=== PATIENT | male | born 1985 | race Caucasian/White ===

== ENCOUNTER 2017-08-23 17:22 | Emergency (ER) | payer BC ==
[~2017-08-23] VITALS: Ht 182.9 cm; Wt 119.3 kg
[~2017-08-23 17:22] MED LIST: FENO145T37 PO; FENO48TA16 PO; GLIP5TAB26 PO; HYDR-3731 PO; IBUP-2055 PO; LISI10TA2 PO; LISI1TAB10 PO; METF-380 PO; OXYC-202 PO
[2017-08-23] MEDS ORDERED: NS IV 1000 ML 1,000 ML IV ONE (18:12)
[2017-08-23] MEDS ORDERED: KETOROLAC 30 MG/ML VIAL IVP STA (18:12)
[2017-08-23] MEDS ORDERED: HYOSCYAMINE 0.125 MG (LEVSIN) TAB SL ONE (18:15)
[2017-08-23] MEDS ORDERED: ONDANSETRON 4 MG/2 ML (SDV) Z0FRAN IVP ONE (18:15)
[2017-08-23 18:23] LABS: BASOPHILS % (AUTO) 0 % (0-10); EOSINOPHILS # (AUTO) 0.2 10^3/uL (0.0-0.3); EOSINOPHILS % (AUTO) 1 % (0-10); HEMATOCRIT 44 % (40-54); HEMOGLOBIN 15.4 G/DL (13.3-17.7); LYMPHOCYTES # (AUTO) 3.8 X 10^3 (1.0-4.0); LYMPHOCYTES % (AUTO) 26 % (12-44); MEAN CORPUSCULAR HEMOGLOBIN 29 PG (25-34); MEAN CORPUSCULAR HGB CONC 35 G/DL (32-36); MEAN CORPUSCULAR VOLUME 82 FL (80-99); MEAN PLATELET VOLUME 11.7 FL (7.4-10.4); MONOCYTES # (AUTO) 1.2 X 10^3 (0.0-1.0); MONOCYTES % (AUTO) 8 % (0-12); NEUTROPHILS # (AUTO) 9.6 X 10^3 (1.8-7.8); NEUTROPHILS % (AUTO) 65 % (42-75); PLATELET COUNT 246 10^3/uL (130-400); RED BLOOD COUNT 5.33 10^6/uL (4.35-5.85); RED CELL DISTRIBUTION WIDTH 13.7 % (10.0-14.5); WHITE BLOOD COUNT 14.8 10^3/uL (4.3-11.0)
[2017-08-23 18:33] LABS: BILIRUBIN,URINE NEGATIVE (NEGATIVE); CLARITY,URINE CLEAR; COLOR,URINE YELLOW; GLUCOSE, URINE (UA) 2+ (NEGATIVE); KETONES,URINE 1+ (NEGATIVE); LEUKOCYTE ESTERASE ,URINE NEGATIVE (NEGATIVE); NITRITE,URINE NEGATIVE (NEGATIVE); PH,URINE 6 (5-9); PROTEIN,URINE 2+ (NEGATIVE); UROBILINOGEN,URINE NORMAL (NORMAL)
[2017-08-23 18:43] LABS: ALANINE AMINOTRANSFERASE 48 U/L (0-55); ALBUMIN 4.6 GM/DL (3.2-4.5); ALKALINE PHOSPHATASE 52 U/L (40-136); AMYLASE 63 U/L (25-125); BILIRUBIN,TOTAL 0.5 MG/DL (0.1-1.0); BUN/CREATININE RATIO 20; CALCIUM 10.1 MG/DL (8.5-10.1); CARBON DIOXIDE 22 MMOL/L (21-32); CHLORIDE 104 MMOL/L (98-107); CREATININE SERUM 0.88 MG/DL (0.60-1.30); GFR ESTIMATED > 60; GLUCOSE 186 MG/DL (70-105); LIPASE 38 U/L (8-78); POTASSIUM 3.9 MMOL/L (3.6-5.0); SODIUM 139 MMOL/L (135-145); TOTAL PROTEIN 8.2 GM/DL (6.4-8.2)
[2017-08-23 18:46] LABS: BACTERIA,URINE NEGATIVE /HPF
--- NOTE | 2017-08-23 18:47 | Diagnostic Imaging Report ---
INDICATION: Nausea, vomiting, abdominal pain. 01/09/2015. KUB and upright views of the abdomen demonstrate nondistended bowel gas pattern. There is no free air. No significant constipation. IMPRESSION: Negative KUB and upright. Dictated by: Dictated on workstation # [id number]
--- NOTE | 2017-08-23 18:51 | Diagnostic Imaging Report ---
PROCEDURE: CT urinary tract, rule out kidney stone. TECHNIQUE: Multiple contiguous axial images were obtained through the abdomen and pelvis without the use of intravenous contrast. INDICATION: Nausea, right upper quadrant abdominal pain. COMPARISON: 01/05/2015. FINDINGS: Lung bases are clear. Stable fatty infiltration of the liver is present. Otherwise, liver morphology is unremarkable. Gallbladder, spleen, adrenal glands and kidneys are unremarkable. There is some questionable inflammatory change involving the pancreatic head which could represent very minimal pancreatitis. There is no pseudocyst. Please correlate with pancreatic enzymes. The course and caliber of the large and small bowel are normal. There is no free air or free fluid. Distal ureters and urinary bladder are normal. The abdominal wall is intact. Osseous structures are age-appropriate. IMPRESSION: 1. Questionable slight inflammatory change involving the pancreatic head. Please correlate with pancreatic enzymes. 2. Normal appearing gallbladder. 3. No hydronephrosis or renal calculi. Dictated by: Dictated on workstation # [id number]
--- NOTE | 2017-08-23 18:52 | ED Abdominal Pain ---
General Chief Complaint: Abdominal/GI Problems Stated Complaint: R SIDE STOMACH PAIN/NAUSEA Nursing Triage Note: C/O rt upper quad abd pain starting at 0200 this morning. dull ache that has not stopped. nausea. normal bm's 3 today, no urinary sx Sepsis Screen: No Definite Risk Source of Information: Patient Exam Limitations: No Limitations History of Present Illness Date Seen by Provider: August 23, 2017 Time Seen by Provider: 18:05 Initial Comments C/O RUQ PAIN, THAT WOKE HIM UP AT 0200 THIS AM PAIN HAS CONTINUED THROUGHOUT THE DAY, AND IS WORSE WITH BOUNCING ON BULLDOZER ALL DAY PAIN IS CONSTANT WITH INTERMITTENT MORE SEVERE PAIN AT TIMES RATES PAIN 7-8 /10 NO RADIATION OF PAIN C/O NAUSEA, NO VOMITING NO DIARRHEA OR CONSTIPATION--HAS HAD 2-3 NORMAL BM'S TODAY NO FEVER NO URINARY SYMPTOMS NO BACK PAIN NO HISTORY OF SIMILAR--PT HAS HISTORY OF KIDNEY STONES, BUT THIS IS NOT THE SAME ATE CHICKEN BREASTS, AND SALAD AT NOON HAS HAD 1/2 GALLON OF SWEET TEA, PLUS 3-4 BOTTLES OF WATER TO DRINK TODAY PCP: [facility] Allergies and Home Medications Allergies Coded Allergies: No Known Drug Allergies (Unverified , 08/23/17) Home Medications Fenofibrate Nanocrystallized 145 Mg Tablet, 145 MG PO DAILY, (Reported) Glipizide 5 Mg Tab.er.24, 5 MG PO DAILY, (Reported) Hydrocodone/Acetaminophen 1 Each Tablet, 1 TAB PO Q4H PRN for PAIN, (Reported) Hyoscyamine Sulfate 0.125 Mg Tab.subl, 1-2 TAB SL Q4H Prescribed by: DEBBIE PIKE on 08/23/171938 Ibuprofen 200 Mg Tablet, 800 MG PO DAILY PRN for PAIN, (Reported) Lisinopril/Hydrochlorothiazide 1 Each Tablet, 2 TAB PO DAILY, (Reported) Metformin Hcl 1,000 Mg Tablet, 1,000 MG PO BID, (Reported) 1 tablet twice a day after meals Oxycodone HCl/Acetaminophen 1 Each Tablet, 1 TAB PO Q6H PRN for PAIN, (Reported) Pantoprazole Sodium 40 Mg Tablet.dr, 40 MG PO DAILY Prescribed by: DEBBIE PIKE on 08/23/171938 Sucralfate 1 Gm Tablet, 1 GM PO QIDACHS Prescribed by: DEBBIE PIKE on 08/23/171938 Tramadol HCl 50 Mg Tablet, 50 MG PO Q4H Prescribed by: DEBBIE PIKE on 08/23/171938 Patient Home Medication List Home Medication List Reviewed: Yes Review of Systems Constitutional: no symptoms reported EENTM: No Symptoms Reported Respiratory: No Symptoms Reported Cardiovascular: No Symptoms Reported Gastrointestinal: See HPI, Abdominal Pain, Nausea; Denies Poor Appetite, Denies Poor Fluid Intake, Denies Vomiting Genitourinary: No Symptoms Reported Musculoskeletal: no symptoms reported; No back pain Skin: no symptoms reported Psychiatric/Neurological: No Symptoms Reported Endocrine: No Symptoms Reported Hematologic/Lymphatic: No Symptoms Reported Past Aajbrqt-Erjtom-Bcoqdf Hx Patient Social History Alcohol Use: Denies Use Recreational Drug Use: No Smoking Status: Former Smoker Type Used: Cigarettes Former Smoker, Quit: Apr 06, 2006 2nd Hand Smoke Exposure: No Recent Foreign Travel: No Contact w/Someone Who Travel: No Recent Infectious Disease Expo: No Recent Hopitalizations: Yes Physical Abuse: No Sexual Abuse: No Mistreated: No Fear: No Immunizations Up To Date Tetanus Booster (TDap): Less than 5yrs Past Medical History Surgeries: Yes (total ACL reconstruction at 16 years old; KIDNEY STONE REMOVAL) Orthopedic, Renal Respiratory: No Cardiac: Yes High Cholesterol, Hypertension Neurological: No Reproductive Disorders: No Genitourinary: Yes Kidney Stones Gastrointestinal: No Musculoskeletal: Yes (KNEE SURGERY AGE 16) Endocrine: Yes Diabetes, Non-Insulin dep HEENT: No Cancer: No Psychosocial: No Nursing Suicide Risk Score: 0 Integumentary: No Blood Disorders: No Family Medical History Diabetes mellitus 19 FATHER Myocardial infarction 19 FATHER Physical Exam Vital Signs Vital Signs - First Documented 08/23/17 17:51 Pulse 102 Resp 18 B/P (MAP) 180/112 (134) Pulse Ox 98 Capillary Refill : Less Than 3 Seconds General Appearance: no apparent distress, obese HEENT: PERRL/EOMI Neck: normal inspection Respiratory: normal breath sounds, no respiratory distress, no accessory muscle use Cardiovascular: regular rate, rhythm, no murmur Gastrointestinal: normal bowel sounds, soft, no organomegaly, no pulsatile mass Extremities: normal range of motion, non-tender, normal inspection, no pedal edema, no calf tenderness, normal capillary refill Back: normal inspection, no CVA tenderness 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, no motor/sensory deficits, alert, normal mood/affect, oriented x 3 Skin: normal color, warm/dry; No rash Progress/Results/Core Measures Results/Orders Lab Results Laboratory Tests Test 08/23/17 18:00 08/23/17 18:27 Range/Units White Blood Count 14.8 H 4.3-11.0 10^3/uL Red Blood Count 5.33 4.35-5.85 10^6/uL Hemoglobin 15.4 13.3-17.7 G/DL Hematocrit 44 40-54 % Mean Corpuscular Volume 82 80-99 FL Mean Corpuscular Hemoglobin 29 25-34 PG Mean Corpuscular Hemoglobin Concent 35 32-36 G/DL Red Cell Distribution Width 13.7 10.0-14.5 % Platelet Count 246 130-400 10^3/uL Mean Platelet Volume 11.7 H 7.4-10.4 FL Neutrophils (%) (Auto) 65 42-75 % Lymphocytes (%) (Auto) 26 12-44 % Monocytes (%) (Auto) 8 0-12 % Eosinophils (%) (Auto) 1 0-10 % Basophils (%) (Auto) 0 0-10 % Neutrophils # (Auto) 9.6 H 1.8-7.8 X 10^3 Lymphocytes # (Auto) 3.8 1.0-4.0 X 10^3 Monocytes # (Auto) 1.2 H 0.0-1.0 X 10^3 Eosinophils # (Auto) 0.2 0.0-0.3 10^3/uL Basophils # (Auto) 0.0 0.0-0.1 10^3/uL Neutrophils % (Manual) 65 % Lymphocytes % (Manual) 24 % Monocytes % (Manual) 11 % Blood Morphology Comment NORMAL Sodium Level 139 135-145 MMOL/L Potassium Level 3.9 3.6-5.0 MMOL/L Chloride Level 104 98-107 MMOL/L Carbon Dioxide Level 22 21-32 MMOL/L Anion Gap 13 5-14 MMOL/L Blood Urea Nitrogen 18 7-18 MG/DL Creatinine 0.88 0.60-1.30 MG/DL Estimat Glomerular Filtration Rate > 60 BUN/Creatinine Ratio 20 Glucose Level 186 H 70-105 MG/DL Calcium Level 10.1 8.5-10.1 MG/DL Total Bilirubin 0.5 0.1-1.0 MG/DL Aspartate Amino Transf (AST/SGOT) 17 5-34 U/L Alanine Aminotransferase (ALT/SGPT) 48 0-55 U/L Alkaline Phosphatase 52 40-136 U/L Total Protein 8.2 6.4-8.2 GM/DL Albumin 4.6 H 3.2-4.5 GM/DL Amylase Level 63 25-125 U/L Lipase 38 8-78 U/L Urine Color YELLOW Urine Clarity CLEAR Urine pH 6 5-9 Urine Specific [place] 1.025 H 1.016-1.022 Urine Protein 2+ H NEGATIVE Urine Glucose (UA) 2+ H NEGATIVE Urine Ketones 1+ H NEGATIVE Urine Nitrite NEGATIVE NEGATIVE Urine Bilirubin NEGATIVE NEGATIVE Urine Urobilinogen NORMAL NORMAL MG/DL Urine Leukocyte Esterase NEGATIVE NEGATIVE Urine RBC (Auto) NEGATIVE NEGATIVE Urine RBC NONE /HPF Urine WBC NONE /HPF Urine Crystals NONE /LPF Urine Bacteria NEGATIVE /HPF Urine Casts NONE /LPF Urine Mucus NEGATIVE /LPF Urine Culture Indicated NO My Orders Orders - DEBBIE PIKE DO Saline Lock/Iv-Start (08/23/17 18:12) Ct Abd/Pelvis Wo(Kidney Stone) (08/23/17 18:12) Amylase (08/23/17 18:12) Cbc With Automated Diff (08/23/17 18:12) Comprehensive Metabolic Panel (08/23/17 18:12) Lipase (08/23/17 18:12) Ua Culture If Indicated (08/23/17 18:12) Abdomen, Flat & Upright/Decub (08/23/17 18:12) Saline Lock/Iv-Start (08/23/17 18:12) Ns Iv 1000 Ml (Sodium Chloride 0.9%) (08/23/17 18:12) Ondansetron Injection (Zofran Injectio (08/23/17 18:15) Hyoscyamine Sl Tablet (Levsin Sl Tablet) (08/23/17 18:15) Ketorolac Injection (Toradol Injection) (08/23/17 18:12) Manual Differential (08/23/17 18:00) Pantoprazole Injection (Protonix Injecti (08/23/17 19:00) Fentanyl Injection (Sublimaze Injection (08/23/17 18:59) Us Abdomen Complete 73519 (08/23/17 18:59) Rx-Ondansetron Po (Rx-Zofran Po) (08/23/17 19:35) Rx-Tramadol Hcl (Rx-Ultram) (08/23/17 19:35) Rx-Hyoscyamine Tab (Rx-Levsin Sl) (08/23/17 19:35) Pantoprazole Injection (Protonix Injecti (08/23/17 19:07) Fentanyl Injection (Sublimaze Injection (08/23/17 19:07) Medications Given in ED Current Medications Medications Dose Ordered Sig/Noemi Route Start Time Stop Time Status Last Admin Dose Admin Hyoscyamine Sulfate 0.25 mg ONCE ONCE SL 08/23/17 18:15 08/23/17 18:16 DC 08/23/17 18:22 0.25 MG Ondansetron HCl 4 mg ONCE ONCE IVP 08/23/17 18:15 08/23/17 18:16 DC 08/23/17 18:22 4 MG Pantoprazole 40 mg ONCE ONCE IV 08/23/17 19:00 08/23/17 20:15 DC 08/23/17 19:14 40 MG Sodium Chloride 1,000 ml @ 0 mls/hr Q0M ONCE IV 08/23/17 18:12 08/23/17 18:14 DC 08/23/17 18:22 1,000 MLS/HR Vital Signs/I&O 08/23/17 08/23/17 17:51 20:15 Pulse 102 97 Resp 18 18 B/P (MAP) 180/112 (134) 138/86 Pulse Ox 98 97 08/24/17 00:00 Intake Total 1000 ml Balance 1000 ml Blood Pressure Mean: 134 Progress Progress Note : Progress Note ALL SYMPTOMS RESOLVED AT DISMISSAL Diagnostic Imaging Comments ABD XRAYS--NO ACUTE PROCESS CT ABDOMEN/PELVIS--QUESTIONABLE MILD INFLAMMATORY CHANGES OF PANCREATIC HEAD, MILD FATTY LIVER, NORMAL APPEARING GALLBLADDER, NO ACUTE INTRA-ABDOMINAL FINDINGS PER RADIOLOGIST REPORTS @ 1854 ABDOMINAL ULTRASOUND--NORMAL APPEARING GALLBLADDER, SLIGHT SPLENOMEGALY, PANCREAS AND COMMON BILE DUCT NOT WELL VISUALIZED. OTHERWISE NORMAL ULTRASOUND. PER TECH REPORT AT 1930 AND LATER VIA RADIOLOGIST REPORT Reviewed: Reviewed by Me Departure Impression Primary Impression: RUQ abdominal pain Disposition: 01 HOME, SELF-CARE Condition: Improved Departure-Patient Inst. Referrals: REGI MANDUJANO DO (PCP/Family) Primary Care Physician Patient Instructions: Acute Abdomen (Belly Pain), Adult (DC) Add. Discharge Instructions: CLEAR LIQUIDS--WATER, BROTH, JELLO, GATORADE--FOR AT LEAST 24 HOURS IF YOU ARE BETTER AFTER TOMORROW EVENING, YOU MAY ADD BRATS DIET TO CLEAR LIQUIDS--BANANAS, RICE, APPLESAUCE, TOAST, SALTINES FOLLOW UP WITH [facility] IN 2-3 DAYS FOR FURTHER CARE RETURN TO ER IF WORSE All discharge instructions reviewed with patient and/or family. Voiced understanding. Scripts Tramadol HCl (Ultram) 50 Mg Tablet 50 MG PO Q4H, #20 TAB Prov: DEBBIE PIKE DO 08/23/17 Pantoprazole Sodium (Protonix) 40 Mg Tablet.dr 40 MG PO DAILY, #15 TAB Prov: DEBBIE PIKE DO 08/23/17 Hyoscyamine Sulfate (Levsin-Sl) 0.125 Mg Tab.subl 1-2 TAB SL Q4H for Abdominal Pain, #15 TAB Prov: DEBBIE PIKE DO 08/23/17 Sucralfate (Carafate) 1 Gm Tablet 1 GM PO QIDACHS, #60 TAB Prov: DEBBIE PIKE DO 08/23/17 DEBBIE PIKE DO August 23, 2017 18:52
[2017-08-23 18:56] LABS: LYMPHOCYTES % (MANUAL) 24 %; MONOCYTES % (MANUAL) 11 %; NEUTROPHILS % (MANUAL) 65 %; RBC MORPH NORMAL
[2017-08-23] MEDS ORDERED: fentaNYL INJECTION 100 MCG/2 ML AMP IVP STA (18:59)
[2017-08-23] MEDS ORDERED: PANTOPRAZOLE 40 MG/10 ML (PROTONIX) VIAL IV ONE (19:00)
[2017-08-23] MEDS ORDERED: PANTOPRAZOLE 40 MG/10 ML (PROTONIX) VIAL ONE (19:07)
[2017-08-23] MEDS ORDERED: fentaNYL INJECTION 100 MCG/2 ML AMP ONE (19:07)
[2017-08-23] MEDS ORDERED: RX-TRAMADOL 50 MG (ULTRAM) TAB PPK#4 PO STA (19:35)
[2017-08-23] MEDS ORDERED: RX-ONDANSETRON 4 MG ODT (ZOFRAN) PPK #4 PO STA (19:35)
[2017-08-23] MEDS ORDERED: RX-HYOSCYAMINE 0.125 MG SL (LEVSIN) PPK#6 SL STA (19:35)
[2017-08-23] MEDS ORDERED: TRAM-42 PO (19:39)
[2017-08-23] MEDS ORDERED: HYOS0.1283 SL (19:39)
[2017-08-23] MEDS ORDERED: SUCR1TAB36 PO (19:39)
[2017-08-23] MEDS ORDERED: PANT40TA2 PO (19:39)
--- NOTE | 2017-08-23 19:41 | Diagnostic Imaging Report ---
PROCEDURE: US abdomen complete. TECHNIQUE: Multiple real-time grayscale images were obtained over the abdomen in various projections. INDICATION: Abdominal pain. COMPARISON: None. FINDINGS: Mild fatty infiltration throughout the liver is seen. There is no mass. The common bile duct is obscured by overlying bowel gas. There is no intrahepatic bilary duct dilatation. The pancreas is poorly visualized. There is no cholelithiasis or cholecystitis. The visualized spleen, IVC and aorta are normal. Both kidneys have a normal appearance. There is no ascites. IMPRESSION: 1. No cholelithiasis or cholecystitis. 2. Fatty liver. 3. Poorly visualized common bile duct and pancreas. Dictated by: Dictated on workstation # [id number]
[2017-08-23 20:15] VITALS: BP 138/86
== END 2017-08-23 20:14 | disposition home or self-care (01) ==
LOC: ER 17:22 → EDUNIT# 17:22 → ER 20:14
DX: R10.11 Right upper quadrant pain (principal); E78.00 Pure hypercholesterolemia, unspecified; I10 Essential (primary) hypertension; E11.9 Type 2 diabetes mellitus without complications; Z82.49 Family history of ischemic heart disease and other diseases of the circulatory system; Z79.84 Long term (current) use of oral hypoglycemic drugs; Z87.891 Personal history of nicotine dependence; Z87.442 Personal history of urinary calculi
CPT/HCPCS: 36415; 74019; 74176; 76700; 80053; 81000; 82150; 83690; 85007; 85027; 96361; 96374; 96375

== ENCOUNTER → 2017-09-04 | Outpatient (CLI) | payer BC ==
[~2017-09-04] MED LIST changes: +CATHETER FLUSH 10 ML SYR IV PRN; +HYOS0.1283 SL; +PANT40TA2 PO; +SUCR1TAB36 PO; +TRAM-42 PO
--- NOTE | 2017-09-04 18:30 | Diagnostic Imaging Report ---
INDICATION: Abdominal pain Procedure: Following the uneventful intravenous administration of 5.49 mCi technetium 99m Choletec, dynamic hepatobiliary scintigraphy is performed out to 60 minutes. At 60 minutes, a can of Ensure was given orally and an additional 60 minutes of imaging was performed. Gallbladder ejection fraction is calculated utilizing time versus activity curve. FINDINGS: There is normal fairly homogeneous uptake throughout the liver without focal photopenia or photo density. Gallbladder activity is visualized by 5-10 minutes. Following administration of Ensure, gallbladder ejection fraction was calculated at 44% which is within normal range. IMPRESSION: Unremarkable nuclear medicine HIDA scan. Normal ejection fraction. Dictated by: Dictated on workstation # [id number]
== END ==
LOC: CARD 09:56
PROVIDERS: ATTEND Nurse Practitioner Community Health
DX: R10.11 Right upper quadrant pain (principal)
CPT/HCPCS: 78227

== ENCOUNTER → 2018-05-19 | Outpatient (CLI) | payer BC, OTHER ==
[~2018-05-19] MED LIST changes: -CATHETER FLUSH 10 ML SYR IV PRN; -OXYC-202 PO; +OXYC1TAB12 PO
== END ==
LOC: CARD 12:15
PROVIDERS: ATTEND Internal Medicine Cardiovascular Disease
DX: I10 Essential (primary) hypertension (principal); E78.1 Pure hyperglyceridemia; E11.9 Type 2 diabetes mellitus without complications
CPT/HCPCS: 93306

== ENCOUNTER → 2020-09-13 | Outpatient (CLI) | payer OTHER, BC ==
[~2020-09-13] MED LIST changes: +FENO145T26 PO; -FENO145T37 PO; -IBUP-2055 PO; +IBUP-2473 PO; -LISI10TA2 PO; +LISI10TA25 PO; -LISI1TAB10 PO; +LISI1TAB26 PO
--- NOTE | 2020-09-13 09:42 | Diagnostic Imaging Report ---
EXAMINATION: Left knee at 920 hours. INDICATION: Unable to straighten knee. 3 views were obtained. There are no prior studies available for comparison. FINDINGS: There is no fracture, dislocation or acute bony abnormality evident. The knee joint is well maintained. The soft tissues are unremarkable. IMPRESSION: 1. There is no evidence for an acute bony abnormality. 2. If there is clinical concern regarding internal derangement, then MRI would be recommended for further study. Dictated by: Dictated on workstation # [id number]
== END ==
LOC: RAD 08:42
PROVIDERS: ATTEND Family Medicine
DX: S83.8X2A Sprain of other specified parts of left knee, initial encounter (principal)
CPT/HCPCS: 73562

== ENCOUNTER → 2020-09-27 | Outpatient (CLI) | payer BC ==
--- NOTE | 2020-09-27 10:07 | Diagnostic Imaging Report ---
MRI LT LOWER EXT JOINT W/O TECHNIQUE: Multiplanar, multisequence MR imaging of the left knee was performed without contrast. COMPARISON: Left knee radiographs from 09/14/2019 INDICATION: Knee pain after injury. FINDINGS: MENISCI Medial meniscus: Complex and unstable bucket handle tear of the medial meniscus with the free edge flipped into the intercondylar notch. Lateral meniscus: Normal. LIGAMENTS ACL: Complete tear of the ACL in its mid substance. PCL: Intact. MCL: Intact. LCL: The lateral collateral ligamentous complex is intact. EXTENSOR MECHANISM The extensor mechanism is intact. CARTILAGE Medial compartment: Medial compartment articular cartilage is well preserved without focal high-grade chondromalacia. Lateral compartment: The lateral compartment articular cartilage is preserved without high-grade chondromalacia. Patellofemoral compartment: The patellofemoral articular cartilage is well preserved without high-grade chondromalacia. BONE No fracture, stress fracture or osteonecrosis. SOFT TISSUE Moderate-sized knee joint effusion. No Carey's cyst. IMPRESSION: 1. Complete tear of the ACL in its mid substance. 2. Unstable bucket handle tear of the medial meniscus with the free edge flipped into the intercondylar notch. 3. No acute articular cartilage injury. 4. No bone contusion or fracture. 5. Moderate-sized knee joint effusion. Dictated by: Dictated on workstation # [id number]
== END ==
LOC: RAD 07:40
PROVIDERS: ATTEND Family Medicine
DX: S83.32XA Tear of articular cartilage of left knee, current, initial encounter (principal); S83.212A Bucket-handle tear of medial meniscus, current injury, left knee, initial encounter; X58.XXXA Exposure to other specified factors, initial encounter
CPT/HCPCS: 73721

== ENCOUNTER 2021-03-01 03:15 | Emergency (ER) | payer BC ==
[~2021-03-01] VITALS: Ht 182.9 cm; Wt 109.0 kg
[~2021-03-01 03:15] MED LIST changes: -LISI1TAB26 PO; +LISI1TAB48 PO
--- NOTE | 2021-03-01 03:50 | ED Abdominal Pain ---
General Stated Complaint: ABD PAIN,VOMITING Source of Information: Patient Exam Limitations: No Limitations History of Present Illness Date Seen by Provider: Mar 01, 2021 Time Seen by Provider: 03:40 Initial Comments Patient is a 36-year-old male who presents to the emergency department with a chief complaint of right-sided abdominal pain, nausea, vomiting, feeling dizzy. Symptoms onset around 8:00 last night. Patient states he has been up every 30 minutes with the pain and dry heaving. He states he ate Thanksgiving dinner around 430 yesterday. He states several years ago he was diagnosed with a "sluggish" gallbladder. He has not had any problems since that time. States he has had a low-grade fever around 100 tonight. He has had a little bit of diarrhea. He states the pain radiates from his right upper quadrant down into his groin. He denies any scrotal pain or testicular pain. No problems urinating. No black or bloody stools. He has not taken anything for the pain. He has had no prior abdominal surgeries. Every time he is trying to drink any water throughout the morning he has had vomiting. He takes medications for high blood pressure, high cholesterol and diabetes. All other review of systems reviewed and negative except as stated. Timing/Duration: 4-6 Hours Severity/Quality: Severe ("8"), Cramping Location: RUQ Radiation: Groin Activities at Onset: None Associated Symptoms: Fever/Chills ("low grade"), Nausea/Vomiting Allergies and Home Medications Allergies Coded Allergies: No Known Drug Allergies (Unverified , 08/23/17) Patient Home Medication List Home Medication List Reviewed: Yes Dicyclomine HCl (Dicyclomine HCl) 20 Mg Tablet, 20 MG PO Q6H PRN for abdominal cramping Prescribed by: GLENDY CARLTON on 03/01/21 0520 Fenofibrate Nanocrystallized (Fenofibrate) 145 Mg Tablet, 145 MG PO DAILY, (Reported) Entered as Reported by: SHANKAR NUNEZ on 01/08/15 1518 Glipizide (Glipizide ER) 5 Mg Tab.er.24, 5 MG PO DAILY, (Reported) Entered as Reported by: SHANKAR NUNEZ on 01/08/15 1518 Hydrocodone/Acetaminophen (Lortab 10-325 mg Tablet) 1 Each Tablet, 1 TAB PO Q4H PRN for PAIN, (Reported) Entered as Reported by: SHANKAR NUNEZ on 01/08/15 152 Hyoscyamine Sulfate (Levsin-Sl) 0.125 Mg Tab.subl, 1-2 TAB SL Q4H Prescribed by: DEBBIE PIKE on 08/23/171938 Ibuprofen (Ibuprofen) 200 Mg Tablet, 800 MG PO DAILY PRN for PAIN, (Reported) Entered as Reported by: SHANKAR NUNEZ on 01/08/15 152 Lisinopril/Hydrochlorothiazide (Lisinopril-Hctz 20-25 mg Tab) 1 Each Tablet, 2 TAB PO DAILY, (Reported) Entered as Reported by: SHANKAR NUNEZ on 01/08/15 151 Metformin Hcl (Metformin 1000 Mg) 1,000 Mg Tablet, 1,000 MG PO BID, (Reported) Entered as Reported by: TEAGAN FOSTER on 12/20/11 1545 Ondansetron (Ondansetron Odt) 4 Mg Tab.rapdis, 4 MG PO Q8H PRN for nausea Prescribed by: GLENDY CARLTON on 03/01/21 0520 Oxycodone HCl/Acetaminophen (Percocet 10-325 mg Tablet) 1 Each Tablet, 1 TAB PO Q6H PRN for PAIN, (Reported) Entered as Reported by: SHANKAR NUNEZ on 01/08/15 152 Pantoprazole Sodium (Protonix) 40 Mg Tablet.dr, 40 MG PO DAILY Prescribed by: DEBBIE PIKE on 08/23/171938 Sucralfate (Carafate) 1 Gm Tablet, 1 GM PO QIDACHS Prescribed by: DEBBIE PIKE on 08/23/171938 Tramadol HCl (Ultram) 50 Mg Tablet, 50 MG PO Q4H Prescribed by: DEBBIE PIKE on 08/23/171938 Review of Systems Review of Systems Constitutional: see HPI EENTM: No Symptoms Reported Respiratory: No Symptoms Reported Cardiovascular: No Symptoms Reported Gastrointestinal: Abdominal Pain, Diarrhea, Nausea, Vomiting Genitourinary: No Symptoms Reported Musculoskeletal: no symptoms reported Skin: no symptoms reported Psychiatric/Neurological: No Symptoms Reported All Other Systems Reviewed Negative Unless Noted: Yes Past Npwndju-Uwlanl-Mvbutg Hx Immunizations Up To Date Tetanus Booster (TDap): Less than 5yrs Past Medical History Surgeries: Yes (total ACL reconstruction at 16 years old; KIDNEY STONE REMOVAL) Orthopedic, Renal Respiratory: No Cardiac: Yes High Cholesterol, Hypertension Neurological: No Reproductive Disorders: No Genitourinary: Yes Kidney Stones Gastrointestinal: No Musculoskeletal: Yes (KNEE SURGERY AGE 16) Endocrine: Yes Diabetes, Non-Insulin dep HEENT: No Cancer: No Psychosocial: No Integumentary: No Blood Disorders: No Family Medical History Diabetes mellitus 19 FATHER Myocardial infarction 19 FATHER Physical Exam Vital Signs Vital Signs - First Documented 03/01/21 03:38 Temp 36.4 Pulse 124 Resp 16 B/P (MAP) 155/97 (116) Pulse Ox 95 O2 Delivery Room Air Capillary Refill : Height/Weight/BMI Height: 6'0.00" Weight: 263lbs. oz. 119.733292na; 28.12 BMI Method:Stated General Appearance: WD/WN, mild distress HEENT: PERRL/EOMI Neck: normal inspection Respiratory: lungs clear, normal breath sounds, no respiratory distress, no accessory muscle use Cardiovascular: regular rate, rhythm (120's), no murmur Gastrointestinal: normal bowel sounds, soft; No distended; guarding; No rebound; tenderness (very tender to palpation epigastrum and RUQ), other (negative heel tap) Extremities: normal range of motion, normal inspection Neurologic/Psychiatric: no motor/sensory deficits, alert, normal mood/affect, oriented x 3 Skin: normal color, warm/dry Progress/Results/Core Measures Results/Orders Lab Results Laboratory Tests Test 03/01/21 03:45 Range/Units White Blood Count 14.6 H 4.3-11.0 10^3/uL Red Blood Count 5.77 H 4.30-5.52 10^6/uL Hemoglobin 16.6 13.3-17.7 g/dL Hematocrit 48 40-54 % Mean Corpuscular Volume 83 80-99 fL Mean Corpuscular Hemoglobin 29 25-34 pg Mean Corpuscular Hemoglobin Concent 35 32-36 g/dL Red Cell Distribution Width 12.8 10.0-14.5 % Platelet Count 236 130-400 10^3/uL Mean Platelet Volume 11.9 9.0-12.2 fL Immature Granulocyte % (Auto) 1 % Neutrophils (%) (Auto) 87 H 42-75 % Lymphocytes (%) (Auto) 7 L 12-44 % Monocytes (%) (Auto) 5 0-12 % Eosinophils (%) (Auto) 1 0-10 % Basophils (%) (Auto) 0 0-10 % Neutrophils # (Auto) 12.7 H 1.8-7.8 10^3/uL Lymphocytes # (Auto) 1.0 1.0-4.0 10^3/uL Monocytes # (Auto) 0.7 0.0-1.0 10^3/uL Eosinophils # (Auto) 0.1 0.0-0.3 10^3/uL Basophils # (Auto) 0.0 0.0-0.1 10^3/uL Immature Granulocyte # (Auto) 0.1 0.0-0.1 10^3/uL Sodium Level 134 L 135-145 MMOL/L Potassium Level 4.1 3.6-5.0 MMOL/L Chloride Level 99 98-107 MMOL/L Carbon Dioxide Level 15 L 21-32 MMOL/L Anion Gap 20 H 5-14 MMOL/L Blood Urea Nitrogen 15 7-18 MG/DL Creatinine 0.87 0.60-1.30 MG/DL Estimat Glomerular Filtration Rate 99 BUN/Creatinine Ratio 17 Glucose Level 307 H 70-105 MG/DL Calcium Level 9.3 8.5-10.1 MG/DL Corrected Calcium 9.1 8.5-10.1 MG/DL Total Bilirubin 0.8 0.1-1.0 MG/DL Aspartate Amino Transf (AST/SGOT) 21 5-34 U/L Alanine Aminotransferase (ALT/SGPT) 39 0-55 U/L Alkaline Phosphatase 56 40-136 U/L Total Protein 8.5 H 6.4-8.2 GM/DL Albumin 4.3 3.2-4.5 GM/DL Lipase 27 8-78 U/L My Orders Orders - GLENDY CARLTON MD Ed Iv/Invasive Line Start (03/01/21 03:52) Cbc With Automated Diff (03/01/21 03:52) Comprehensive Metabolic Panel (03/01/21 03:52) Lipase (03/01/21 03:52) Ns Iv 1000 Ml (Sodium Chloride 0.9%) (03/01/21 04:00) Fentanyl Inj (Sublimaze Injection) (03/01/21 04:00) Ondansetron Injection (Zofran Injectio (03/01/21 04:00) Ct Abdomen/Pelvis Wo (03/01/21 04:26) Dicyclomine Capsule (Bentyl Capsule) (03/01/21 05:20) Ketorolac Injection (Toradol Injection) (03/01/21 05:30) Medications Given in ED Current Medications Medications Dose Ordered Sig/Noemi Route Start Time Stop Time Status Last Admin Dose Admin Fentanyl Citrate 50 mcg ONCE ONCE IVP 03/01/21 04:00 03/01/21 04:01 DC 03/01/21 04:27 50 MCG Ketorolac Tromethamine 15 mg ONCE ONCE IVP 03/01/21 05:30 03/01/21 05:31 DC 03/01/21 05:27 15 MG Ondansetron HCl 4 mg ONCE ONCE IVP 03/01/21 04:00 03/01/21 04:01 DC 03/01/21 04:27 4 MG Vital Signs/I&O 03/01/21 03:38 Temp 36.4 Pulse 124 Resp 16 B/P (MAP) 155/97 (116) Pulse Ox 95 O2 Delivery Room Air Progress Progress Note : Time: 05:12 Progress Note Pain is down to a "5". He is not nauseated any more. He states he is on a medication for his raid heart rate - that he is normally high. His rate is still 120, he's gotten about 500ml of a fluid bolus. WIll give him an oral bentyl and some toradol to further treat his pain, Ssspect biliary colic, not acute cholecystitis - especially with the rather normal appearance of the GB on CT and no surrounding fluid, biliary ductal dilation, gall stones visible. Home with pain and nausea meds and follow up with [facility]. He did tell me in the past, his gallbladder was found to be sluggish. Will refer him to Dr Garcia for further work up of this. Diagnostic Imaging Diagonstic Imaging: CT Comments [facility]. [place], [place] NAME: RYLEE ONEAL [facility] REC#: [id number] PT STATUS: REG ER : 1985 PHYSICIAN: GLENDY CARLTON MD ADMIT DATE: 03/01/21/ER Signed Date of Exam:03/01/21 CT ABDOMEN/PELVIS WO EXAMINATION: CT abdomen and pelvis without contrast. TECHNIQUE: Multiple contiguous axial images were obtained through the abdomen and pelvis without the use of intravenous contrast. All CT scans use one or more of the following dose optimizing techniques: automated exposure control, MA and/or KvP adjustment based on patient size and exam type or iterative reconstruction. HISTORY: severe abdominal pain COMPARISON: 08/23/2017 FINDINGS: Lung bases: The lung bases are clear. Solid organs: Diffuse hypoattenuation liver compatible with hepatic steatosis. The gallbladder is normal. There is no biliary ductal dilation. Pancreas is normal. Spleen is normal. Adrenal glands are normal. There is punctate nonobstructing 0.1 cm left renal calculus. No hydronephrosis. Left renal cyst is present which requires no follow-up. Bowel: The stomach and small bowel are normal without obstruction. The colon and appendix are normal. Peritoneum: There is no intraperitoneal free fluid or free air. No suspicious lymphadenopathy. Vasculature: Normal without aneurysm. Musculoskeletal: No suspicious osseous lesion or compression fracture. Pelvis: The prostate gland is normal. The urinary bladder is normal. IMPRESSION: 1. No acute abnormality in the abdomen or pelvis. 2. Hepatic steatosis. 3. Nonobstructing 0.1 cm left renal calculus without hydronephrosis. Dictated by: Dictated on workstation # [id number] Dict: 03/01/21499 Trans: 03/01/21503 [facility] [id number] Interpreted by: KODI ACOSTA DO Electronically signed by: KODI ACOSTA DO 03/01/21 0504 Departure Impression Primary Impression: Abdominal pain Qualified Codes: R10.11 - Right upper quadrant pain Additional Impression: Biliary colic Disposition: 01 HOME, SELF-CARE Condition: Stable Departure-Patient Inst. Decision time for Depature: 05:16 Referrals: [facility] (PCP/Family) Primary Care Physician KARINA GARCIA MD Patient Instructions: Gallbladder Diet Add. Discharge Instructions: Avoid fatty foods, as this can irritate your gallbladder. I have sent medications for nausea and pain to your pharmacy. Take these as d irected/needed. If you have worsening pain, cannot hold down your medications, have fever over 101 or develop any further, concerning symptoms, please come back to the ER for re-evaluation. I have given you contact information for the surgeon account manager education, Dr Garcia. He can further work up your gallbladder (HIDA scan/ ultrasound) to determine if you need to have it taken out. Scripts Ondansetron (Ondansetron Odt) 4 Mg Tab.rapdis 4 MG PO Q8H PRN for nausea, #20 TAB Prov: GLENDY CARLTON MD 03/01/21 Dicyclomine HCl (Dicyclomine HCl) 20 Mg Tablet 20 MG PO Q6H PRN for abdominal cramping, #30 TAB Prov: GLENDY CARLTON MD 03/01/21 Work/School Note: Work Release Form Date Seen in the Emergency Department: Mar 01, 2021 Return to Work: Mar 02, 2021 Copy Copies To 1: REGI MANDUJANO DO Copies To 2: KARINA GARCIA MD, KATHRYN M MD Mar 01, 2021 03:49
[2021-03-01 03:58] LABS: BASOPHILS % (AUTO) 0 % (0-10); EOSINOPHILS # (AUTO) 0.1 10^3/uL (0.0-0.3); EOSINOPHILS % (AUTO) 1 % (0-10); HEMATOCRIT 48 % (40-54); HEMOGLOBIN 16.6 g/dL (13.3-17.7); LYMPHOCYTES % (AUTO) 7 % (12-44); MEAN CORPUSCULAR HEMOGLOBIN 29 pg (25-34); MEAN CORPUSCULAR HGB CONC 35 g/dL (32-36); MEAN CORPUSCULAR VOLUME 83 fL (80-99); MEAN PLATELET VOLUME 11.9 fL (9.0-12.2); MONOCYTES # (AUTO) 0.7 10^3/uL (0.0-1.0); MONOCYTES % (AUTO) 5 % (0-12); NEUTROPHILS # (AUTO) 12.7 10^3/uL (1.8-7.8); NEUTROPHILS % (AUTO) 87 % (42-75); PLATELET COUNT 236 10^3/uL (130-400); WHITE BLOOD COUNT 14.6 10^3/uL (4.3-11.0)
[2021-03-01] MEDS ORDERED: fentaNYL INJ 100 MCG/2 ML AMP IVP ONE (04:00)
[2021-03-01] MEDS ORDERED: ONDANSETRON 4 MG/2 ML (SDV) Z0FRAN IVP ONE (04:00)
[2021-03-01] MEDS ORDERED: NS IV 1000 ML 1,000 ML IV SCH (04:00)
[2021-03-01 04:03] LABS: ALBUMIN 4.3 GM/DL (3.2-4.5)
[2021-03-01 04:04] LABS: POTASSIUM 4.1 MMOL/L (3.6-5.0)
[2021-03-01 04:05] LABS: CALCIUM 9.3 MG/DL (8.5-10.1)
[2021-03-01 04:06] LABS: TOTAL PROTEIN 8.5 GM/DL (6.4-8.2)
[2021-03-01 04:08] LABS: BILIRUBIN,TOTAL 0.8 MG/DL (0.1-1.0)
[2021-03-01 04:10] LABS: CREATININE SERUM 0.87 MG/DL (0.60-1.30)
--- NOTE | 2021-03-01 05:04 | Diagnostic Imaging Report ---
EXAMINATION: CT abdomen and pelvis without contrast. TECHNIQUE: Multiple contiguous axial images were obtained through the abdomen and pelvis without the use of intravenous contrast. All CT scans use one or more of the following dose optimizing techniques: automated exposure control, MA and/or KvP adjustment based on patient size and exam type or iterative reconstruction. HISTORY: severe abdominal pain COMPARISON: 08/23/2017 FINDINGS: Lung bases: The lung bases are clear. Solid organs: Diffuse hypoattenuation liver compatible with hepatic steatosis. The gallbladder is normal. There is no biliary ductal dilation. Pancreas is normal. Spleen is normal. Adrenal glands are normal. There is punctate nonobstructing 0.1 cm left renal calculus. No hydronephrosis. Left renal cyst is present which requires no follow-up. Bowel: The stomach and small bowel are normal without obstruction. The colon and appendix are normal. Peritoneum: There is no intraperitoneal free fluid or free air. No suspicious lymphadenopathy. Vasculature: Normal without aneurysm. Musculoskeletal: No suspicious osseous lesion or compression fracture. Pelvis: The prostate gland is normal. The urinary bladder is normal. IMPRESSION: 1. No acute abnormality in the abdomen or pelvis. 2. Hepatic steatosis. 3. Nonobstructing 0.1 cm left renal calculus without hydronephrosis. Dictated by: Dictated on workstation # [id number]
[2021-03-01] MEDS ORDERED: ONDA4TAB11 PO (05:20)
[2021-03-01] MEDS ORDERED: DICY20TA PO (05:20)
[2021-03-01] MEDS ORDERED: DICYCLOMINE 10 MG (BENTYL) CAP PO STA (05:20)
[2021-03-01] MEDS ORDERED: KETOROLAC 30 MG/ML VIAL IVP ONE (05:30)
[2021-03-01 05:43] VITALS: BP 142/84
== END 2021-03-01 05:53 | disposition home or self-care (01) ==
LOC: EDUNIT# 03:15 → ER 03:18
DX: K80.50 Calculus of bile duct without cholangitis or cholecystitis without obstruction (principal); I10 Essential (primary) hypertension; E11.9 Type 2 diabetes mellitus without complications; E78.00 Pure hypercholesterolemia, unspecified; Z79.84 Long term (current) use of oral hypoglycemic drugs; Z79.899 Other long term (current) drug therapy
CPT/HCPCS: 36415; 74176; 80053; 83690; 85025

== ENCOUNTER 2021-10-18 10:24 | Inpatient (IN) | payer BC ==
[~2021-10-18] VITALS: Ht 182.9 cm; Wt 105.6 kg
[~2021-10-18 10:24] MED LIST changes: +DICY20TA PO; +ONDA4TAB11 PO
[2021-10-18] MEDS ORDERED: NS IV 1000 ML 1,000 ML IV SCH (10:45)
[2021-10-18] MEDS ORDERED: PANTOPRAZOLE 40 MG (PROTONIX) VIAL IV ONE (10:45)
[2021-10-18] MEDS ORDERED: fentaNYL INJ 100 MCG/2 ML AMP IVP ONE (10:45)
[2021-10-18] MEDS ORDERED: ONDANSETRON 4 MG/2 ML (SDV) Z0FRAN IVP ONE (10:45)
[2021-10-18] MEDS ORDERED: IOHEXOL 350 MG/ML 100 ML (OMNIPAQUE 350) VIAL IV ONE (10:45)
[2021-10-18] MEDS ORDERED: HOLD METFORMIN - RECEIVED CONTRAST 20 ML VIAL IV SCH (10:45)
[2021-10-18] MEDS ORDERED: NS 100 ML (IVPB) BAG IV ONE (10:45)
--- NOTE | 2021-10-18 10:47 | ED Abdominal Pain ---
General Chief Complaint: Abdominal/GI Problems Stated Complaint: ABD PAIN Nursing Triage Note: PT PRESENTS TO ED VIA POV FROM HOME WITH COMPLAINTS OF ABDOMINAL PAIN AND NAUSEA X 2 DAYS. PT REPORTS HE HAS HX OF GALLBLADDER ISSUES. Source of Information: Patient Exam Limitations: No Limitations History of Present Illness Date Seen by Provider: Oct 18, 2021 Time Seen by Provider: 10:26 Initial Comments Patient ER by private conveyance chief complaint 2 days progressively worsening now constant 10/10 epigastric pain causing him to tear up. He has a history of familial hyperlipidemia/hypertriglyceridemia and chronic pancreatitis. He does not drink alcohol. He has been using ibuprofen with minimal to moderate relief of pain. He has nausea without vomiting. He has a history of HIDA scan showing a decreased EF but no stones. He has a history of kidney stones. No fevers or chills. Allergies and Home Medications Allergies Coded Allergies: No Known Drug Allergies (Unverified , 08/23/17) Patient Home Medication List Home Medication List Reviewed: Yes Dicyclomine HCl (Dicyclomine HCl) 20 Mg Tablet, 20 MG PO Q6H PRN for abdominal cramping Prescribed by: GLENDY CARLTON on 03/01/21 0520 Fenofibrate Nanocrystallized (Fenofibrate) 145 Mg Tablet, 145 MG PO DAILY, (Reported) Entered as Reported by: SHANKAR NUNEZ on 01/08/15 1518 Glipizide (Glipizide ER) 5 Mg Tab.er.24, 5 MG PO DAILY, (Reported) Entered as Reported by: SHANKAR NUNEZ on 01/08/15 1518 Hydrocodone/Acetaminophen (Lortab 10-325 mg Tablet) 1 Each Tablet, 1 TAB PO Q4H PRN for PAIN, (Reported) Entered as Reported by: SHANKAR NUNEZ on 01/08/15 1527 Hyoscyamine Sulfate (Levsin-Sl) 0.125 Mg Tab.subl, 1-2 TAB SL Q4H Prescribed by: DEBBIE PIKE on 08/23/17 193 Ibuprofen (Ibuprofen) 200 Mg Tablet, 800 MG PO DAILY PRN for PAIN, (Reported) Entered as Reported by: SHANKAR NUNEZ on 01/08/15 1528 Lisinopril/Hydrochlorothiazide (Lisinopril-Hctz 20-25 mg Tab) 1 Each Tablet, 2 TAB PO DAILY, (Reported) Entered as Reported by: SHANKAR NUNEZ on 01/08/15 1518 Metformin Hcl (Metformin 1000 Mg) 1,000 Mg Tablet, 1,000 MG PO BID, (Reported) Entered as Reported by: TEAGAN FOSTER on 12/20/11 1545 Ondansetron (Ondansetron Odt) 4 Mg Tab.rapdis, 4 MG PO Q8H PRN for nausea Prescribed by: GLENDY CARLTON on 03/01/21 0520 Oxycodone HCl/Acetaminophen (Percocet 10-325 mg Tablet) 1 Each Tablet, 1 TAB PO Q6H PRN for PAIN, (Reported) Entered as Reported by: SHANKAR NUNEZ on 01/08/15 1527 Pantoprazole Sodium (Protonix) 40 Mg Tablet.dr, 40 MG PO DAILY Prescribed by: DEBBIE PIKE on 08/23/171938 Sucralfate (Carafate) 1 Gm Tablet, 1 GM PO QIDACHS Prescribed by: DEBBIE PIKE on 08/23/171938 Tramadol HCl (Ultram) 50 Mg Tablet, 50 MG PO Q4H Prescribed by: DEBBIE PIKE on 08/23/171938 Review of Systems Review of Systems Constitutional: No chills, No diaphoresis EENTM: No Blurred Vision, No Double Vision Respiratory: Denies Cough, Denies Shortness of Air Cardiovascular: Denies Chest Pain, Denies Lightheadedness Gastrointestinal: See HPI; Denies Abdomen Distended; Abdominal Pain; Denies Constipated, Denies Diarrhea; Nausea, Poor Fluid Intake; Denies Vomiting Genitourinary: Denies Burning, Denies Discharge Musculoskeletal: No back pain, No joint pain All Other Systems Reviewed Negative Unless Noted: Yes Past Xxppnpt-Cqxjha-Qsofep Hx Patient Social History Tobacco Use?: No Substance use?: No Alcohol Use?: No Pt feels they are or have been: No Immunizations Up To Date Tetanus Booster (TDap): Less than 5yrs Past Medical History Surgery/Hospitalization HX: ORTHO SX DM TYPE 2 HTN HIGH CHOL Surgeries: Yes (total ACL reconstruction at 16 years old; KIDNEY STONE REMOVAL) Orthopedic, Renal Respiratory: No Cardiac: Yes High Cholesterol, Hypertension Neurological: No Reproductive Disorders: No Genitourinary: Yes Kidney Stones Gastrointestinal: No Musculoskeletal: Yes (KNEE SURGERY AGE 16) Endocrine: Yes Diabetes, Non-Insulin dep HEENT: No Cancer: No Psychosocial: No Integumentary: No Blood Disorders: No Family Medical History Diabetes mellitus 19 FATHER Myocardial infarction 19 FATHER Physical Exam Vital Signs Vital Signs - First Documented 10/18/21 10:35 Temp 36.4 Pulse 115 Resp 16 B/P (MAP) 138/94 (109) Pulse Ox 97 Capillary Refill : Less Than 3 Seconds Height/Weight/BMI Height: 6'0.00" Weight: 263lbs. oz. 119.478233rf; 31.00 BMI Method:Stated General Appearance: WD/WN, moderate distress HEENT: PERRL/EOMI, normal ENT inspection, TMs normal, pharynx normal Neck: non-tender, full range of motion, supple, normal inspection Respiratory: lungs clear, normal breath sounds, no respiratory distress, no accessory muscle use Cardiovascular: normal peripheral pulses, regular rate, rhythm Peripheral Pulses: 2+ Radial Pulses (R), 2+ Radial Pulses (L) Gastrointestinal: normal bowel sounds, guarding, tenderness Neurologic/Psychiatric: alert, normal mood/affect, oriented x 3 Skin: normal color, warm/dry Progress/Results/Core Measures Results/Orders Lab Results Laboratory Tests Test 10/18/21 10:33 10/18/21 11:16 Range/Units White Blood Count 17.1 H 4.3-11.0 10^3/uL Red Blood Count 5.42 4.30-5.52 10^6/uL Hemoglobin 16.1 13.3-17.7 g/dL Hematocrit 45 40-54 % Mean Corpuscular Volume 84 80-99 fL Mean Corpuscular Hemoglobin 30 25-34 pg Mean Corpuscular Hemoglobin Concent 36 32-36 g/dL Red Cell Distribution Width 13.8 10.0-14.5 % Platelet Count 262 130-400 10^3/uL Mean Platelet Volume 12.1 9.0-12.2 fL Immature Granulocyte % (Auto) 1 % Neutrophils (%) (Auto) 71 42-75 % Lymphocytes (%) (Auto) 18 12-44 % Monocytes (%) (Auto) 9 0-12 % Eosinophils (%) (Auto) 1 0-10 % Basophils (%) (Auto) 0 0-10 % Neutrophils # (Auto) 12.1 H 1.8-7.8 10^3/uL Lymphocytes # (Auto) 3.2 1.0-4.0 10^3/uL Monocytes # (Auto) 1.6 H 0.0-1.0 10^3/uL Eosinophils # (Auto) 0.1 0.0-0.3 10^3/uL Basophils # (Auto) 0.1 0.0-0.1 10^3/uL Immature Granulocyte # (Auto) 0.1 0.0-0.1 10^3/uL Neutrophils % (Manual) 68 % Lymphocytes % (Manual) 25 % Monocytes % (Manual) 7 % Blood Morphology Comment NORMAL Prothrombin Time 12.5 12.2-14.7 SEC INR Comment 0.9 0.8-1.4 Sodium Level 127 L 135-145 MMOL/L Potassium Level 4.3 3.6-5.0 MMOL/L Chloride Level 93 L 98-107 MMOL/L Carbon Dioxide Level 14 L 21-32 MMOL/L Anion Gap 20 H 5-14 MMOL/L Blood Urea Nitrogen < 10 7-18 MG/DL Creatinine 0.86 0.60-1.30 MG/DL Estimat Glomerular Filtration Rate 115 BUN/Creatinine Ratio 12 Glucose Level 163 H 70-105 MG/DL Calcium Level 10.8 H 8.5-10.1 MG/DL Corrected Calcium 8.5-10.1 MG/DL Total Bilirubin 0.7 0.1-1.0 MG/DL Aspartate Amino Transf (AST/SGOT) 19 5-34 U/L Alanine Aminotransferase (ALT/SGPT) < 30 0-55 U/L Alkaline Phosphatase 53 40-136 U/L C-Reactive Protein High Sensitivity 10.37 H 0.00-0.50 MG/DL Total Protein 14.2 H 6.4-8.2 GM/DL Albumin 4.8 H 3.2-4.5 GM/DL Lipase 86 H 8-78 U/L Urine Color YELLOW Urine Clarity CLEAR Urine pH 5.5 5-9 Urine Specific [place] >=1.030 1.016-1.022 Urine Protein TRACE H NEGATIVE Urine Glucose (UA) 3+ H NEGATIVE Urine Ketones 3+ H NEGATIVE Urine Nitrite NEGATIVE NEGATIVE Urine Bilirubin 1+ H NEGATIVE Urine Urobilinogen 0.2 < = 1.0 MG/DL Urine Leukocyte Esterase NEGATIVE NEGATIVE Urine RBC (Auto) TRACE-I H NEGATIVE Urine RBC RARE /HPF Urine WBC RARE /HPF Urine Crystals NONE /LPF Urine Bacteria NEGATIVE /HPF Urine Casts NONE /LPF Urine Mucus NEGATIVE /LPF Urine Culture Indicated NO My Orders Orders - JORDY HUNG Cbc With Automated Diff (10/18/21 10:40) Comprehensive Metabolic Panel (10/18/21 10:40) Hs C Reactive Protein (10/18/21 10:40) Lipase (10/18/21 10:40) Ct Abdomen/Pelvis W (10/18/21 10:40) Ed Iv/Invasive Line Start (10/18/21 10:40) Ns Iv 1000 Ml (Sodium Chloride 0.9%) (10/18/21 10:45) Triglycerides (10/18/21 10:40) Protime With Inr (10/18/21 10:40) Ondansetron Injection (Zofran Injectio (10/18/21 10:45) Pantoprazole Injection (Protonix Injecti (10/18/21 10:45) Ua Culture If Indicated (10/18/21 10:40) Fentanyl Inj (Sublimaze Injection) (10/18/21 10:45) Iohexol Injection (Omnipaque 350 Mg/Ml 1 (10/18/21 10:45) Received Contrast (Hold Metformin- Contr (10/18/21 10:45) Ns (Ivpb) (Sodium Chloride 0.9% Ivpb Bag (10/18/21 10:45) Manual Differential (10/18/21 10:33) Morphine Injection (Morphine Injection (10/18/21 12:50) Morphine Injection (Morphine Injection (10/18/21 12:50) Medications Given in ED Current Medications Medications Dose Ordered Sig/Noemi Route Start Time Stop Time Status Last Admin Dose Admin Fentanyl Citrate 50 mcg ONCE ONCE IVP 10/18/21 10:45 10/18/21 10:46 DC 10/18/21 11:04 50 MCG Iohexol 100 ml ONCE ONCE IV 10/18/21 10:45 10/18/21 10:48 DC 10/18/21 11:48 100 ML Ondansetron HCl 8 mg ONCE ONCE IVP 10/18/21 10:45 10/18/21 10:46 DC 10/18/21 11:03 8 MG Pantoprazole 40 mg ONCE ONCE IV 10/18/21 10:45 10/18/21 10:46 DC 10/18/21 11:03 40 MG Sodium Chloride 100 ml ONCE ONCE IV 10/18/21 10:45 10/18/21 10:48 DC 10/18/21 11:48 80 ML Vital Signs/I&O 10/18/21 10:35 Temp 36.4 Pulse 115 Resp 16 B/P (MAP) 138/94 (109) Pulse Ox 97 Blood Pressure Mean: 109 Progress Progress Note : Time: 11:39 Progress Note Patient's pain is significantly reduced to 6 out of 10 from 9 out of 10 after 50 mcg of fentanyl. His nausea is improved. He is feeling better and does not want a thing else right now. Since he is unable to tolerate even light touch to his abdomen we will not do an ultrasound and instead do a CT of his abdomen pelvis given the fact he has elevated CRP and white count. Diagnostic Imaging Diagonstic Imaging: CT (With IV contrast) Plain Films/CT/US/NM/MRI: abdomen, pelvis Comments [facility] [place] NAME: RLYEE ONEAL [facility] REC#: [id number] PT STATUS: REG ER : 1985 PHYSICIAN: JORDY HUNG MD ADMIT DATE: 10/18/21/ER Draft Date of Exam:10/18/21 CT ABDOMEN/PELVIS W INDICATION: Abdominal pain TECHNIQUE: Multiple contiguous axial images were obtained through the abdomen and pelvis after administration of intravenous contrast. Auto Exposure Controls were utilized during the CT exam to meet ALARA standards for radiation dose reduction. All CT scans use one or more of the following dose optimizing techniques: automated exposure control, MA and/or KvP adjustment based on patient size and exam type or iterative reconstruction. Comparison made to 03/01/2021. Visualized portions of the lung bases are clear. There is no pleural fluid collection. There is no free intraperitoneal air. The liver shows diffuse fatty infiltration without focal lesion. Gallbladder appears normal. The spleen and adrenals and right kidney are normal in appearance. The left kidney shows a couple small cysts but is otherwise normal. The pancreas shows some hazy edema about the pancreatic tail, compatible with early pancreatitis. There is no well-defined peripancreatic fluid collection. There is no retroperitoneal mass or adenopathy. There is no ascites or abnormal fluid collection. Visualized bowel loops show no sign of obstruction or focal bowel wall thickening. There is no pelvic mass or free fluid. IMPRESSION: Findings compatible with pancreatitis with some hazy edema about the pancreatic tail. No well-defined peripancreatic fluid collections. There is fatty infiltration of the liver. Dictated on workstation # [id number] Dict: 10/18/21 1226 Trans: 10/18/21 1236 CV [id number] Interpreted by: CELESTINE ORTEGA MD Electronically signed by: Reviewed: Reviewed by Me Departure Communication (Admissions) Time/Spoke to Admitting Phy: 13:10 Discussed the case with Dr. Penn and she agrees to put in queued orders. Impression Primary Impression: Pancreatitis Qualified Codes: K85.90 - Acute pancreatitis without necrosis or infection, unspecified Additional Impressions: Hyponatremia Dehydration Disposition: ADMITTED INPATIENT Condition: Stable Admissions Decision to Admit Reason: Admit from ER (General) Decision to Admit/Date: Oct 18, 2021 Time/Decision to Admit Time: 13:00 Departure-Patient Inst. Referrals: [facility][1[facility] (PCP/Family) Primary Care Physician JORDY HUNG Oct 18, 2021 10:47
[2021-10-18 10:54] LABS: ALBUMIN 4.8 GM/DL (3.2-4.5); CHLORIDE 93 MMOL/L (98-107); POTASSIUM 4.3 MMOL/L (3.6-5.0); SODIUM 127 MMOL/L (135-145)
[2021-10-18 10:55] LABS: CALCIUM 10.8 MG/DL (8.5-10.1)
[2021-10-18 10:57] LABS: TOTAL PROTEIN 14.2 GM/DL (6.4-8.2)
[2021-10-18 10:58] LABS: BILIRUBIN,TOTAL 0.7 MG/DL (0.1-1.0); CARBON DIOXIDE 14 MMOL/L (21-32); INR 0.9 (0.8-1.4); PROTHROMBIN TIME PATIENT 12.5 SEC (12.2-14.7)
[2021-10-18 11:04] LABS: LIPASE 86 U/L (8-78)
[2021-10-18 11:15] LABS: BASOPHILS # (AUTO) 0.1 10^3/uL (0.0-0.1); BASOPHILS % (AUTO) 0 % (0-10); EOSINOPHILS # (AUTO) 0.1 10^3/uL (0.0-0.3); EOSINOPHILS % (AUTO) 1 % (0-10); HEMATOCRIT 45 % (40-54); HEMOGLOBIN 16.1 g/dL (13.3-17.7); LYMPHOCYTES # (AUTO) 3.2 10^3/uL (1.0-4.0); LYMPHOCYTES % (AUTO) 18 % (12-44); MEAN CORPUSCULAR HEMOGLOBIN 30 pg (25-34); MEAN CORPUSCULAR HGB CONC 36 g/dL (32-36); MEAN CORPUSCULAR VOLUME 84 fL (80-99); MEAN PLATELET VOLUME 12.1 fL (9.0-12.2); MONOCYTES # (AUTO) 1.6 10^3/uL (0.0-1.0); MONOCYTES % (AUTO) 9 % (0-12); NEUTROPHILS # (AUTO) 12.1 10^3/uL (1.8-7.8); NEUTROPHILS % (AUTO) 71 % (42-75); PLATELET COUNT 262 10^3/uL (130-400); WHITE BLOOD COUNT 17.1 10^3/uL (4.3-11.0)
[2021-10-18 11:24] LABS: BILIRUBIN,URINE 1+ (NEGATIVE); CLARITY,URINE CLEAR; COLOR,URINE YELLOW; GLUCOSE, URINE (UA) 3+ (NEGATIVE); KETONES,URINE 3+ (NEGATIVE); LEUKOCYTE ESTERASE ,URINE NEGATIVE (NEGATIVE); NITRITE,URINE NEGATIVE (NEGATIVE); PH,URINE 5.5 (5-9); PROTEIN,URINE TRACE (NEGATIVE)
[2021-10-18 11:27] LABS: LYMPHOCYTES % (MANUAL) 25 %; MONOCYTES % (MANUAL) 7 %; NEUTROPHILS % (MANUAL) 68 %
[2021-10-18 11:28] LABS: RBC MORPH NORMAL
[2021-10-18 11:31] LABS: ALKALINE PHOSPHATASE 53 U/L (40-136)
[2021-10-18 11:39] LABS: BACTERIA,URINE NEGATIVE /HPF; RBC,URINE RARE /HPF; WBC,URINE RARE /HPF
[2021-10-18 11:45] LABS: GLUCOSE 163 MG/DL (70-105)
[2021-10-18 11:50] LABS: CREATININE SERUM 0.86 MG/DL (0.60-1.30); GFR ESTIMATED 115
[2021-10-18 11:51] LABS: ALANINE AMINOTRANSFERASE < 30 U/L (0-55)
[2021-10-18 11:54] LABS: BUN/CREATININE RATIO 12
--- NOTE | 2021-10-18 12:36 | Diagnostic Imaging Report ---
INDICATION: Abdominal pain TECHNIQUE: Multiple contiguous axial images were obtained through the abdomen and pelvis after administration of intravenous contrast. Auto Exposure Controls were utilized during the CT exam to meet ALARA standards for radiation dose reduction. All CT scans use one or more of the following dose optimizing techniques: automated exposure control, MA and/or KvP adjustment based on patient size and exam type or iterative reconstruction. Comparison made to 03/01/2021. Visualized portions of the lung bases are clear. There is no pleural fluid collection. There is no free intraperitoneal air. The liver shows diffuse fatty infiltration without focal lesion. Gallbladder appears normal. The spleen and adrenals and right kidney are normal in appearance. The left kidney shows a couple small cysts but is otherwise normal. The pancreas shows some hazy edema about the pancreatic tail, compatible with early pancreatitis. There is no well-defined peripancreatic fluid collection. There is no retroperitoneal mass or adenopathy. There is no ascites or abnormal fluid collection. Visualized bowel loops show no sign of obstruction or focal bowel wall thickening. There is no pelvic mass or free fluid. IMPRESSION: Findings compatible with pancreatitis with some hazy edema about the pancreatic tail. No well-defined peripancreatic fluid collections. There is fatty infiltration of the liver. Dictated by: Dictated on workstation # [id number]
[2021-10-18 12:42] LABS: TRIGLYCERIDES 5519 MG/DL (<150)
[2021-10-18] MEDS ORDERED: morphine INJ 10 MG/ML 1ML (SYR OR VIAL) ONE (12:50)
[2021-10-18] MEDS ORDERED: morphine INJ 10 MG/ML 1ML (SYR OR VIAL) IVP STA (12:50)
[2021-10-18] MEDS ORDERED: MELATONIN 3 MG TABLET PO PRN (14:15)
[2021-10-18] MEDS ORDERED: ANTACID SUSP 30 ML UDC (MYLANTA) PO PRN (14:15)
[2021-10-18] MEDS ORDERED: diphenhydrAMINE 25 MG TAB (BENADRYL) PO PRN (14:15)
[2021-10-18] MEDS ORDERED: ACETAMINOPHEN 325 MG TABLET PO PRN (14:15)
[2021-10-18] MEDS ORDERED: NALOXONE 0.4 MG/ML 1 ML (NARCAN) VIAL IV PRN (14:15)
[2021-10-18] MEDS ORDERED: BISACODYL 10 MG SUPP (DULCOLAX) PR PRN (14:15)
[2021-10-18] MEDS ORDERED: MILK OF MAGNESIA 400 MG/5 ML 30 ML UDC PO PRN (14:15)
[2021-10-18] MEDS ORDERED: CALCIUM CARBONATE 500 MG (TUMS) TAB.CHEW PO PRN (14:15)
[2021-10-18] MEDS ORDERED: ONDANSETRON 4 MG (ZOFRAN) ORAL DISSOLVE TAB PO PRN (14:15)
[2021-10-18] MEDS ORDERED: diphenhydrAMINE 50 MG/ML INJ (BENADRYL) IVP PRN (14:15)
[2021-10-18] MEDS ORDERED: polyethylene glycoL POWDER 17 GM (MIRALAX) PACK PO PRN (14:15)
[2021-10-18] MEDS ORDERED: LACTULOSE SYRUP 10GM/15ML (ENULOSE) 30ML UDC PO PRN (14:15)
[2021-10-18] MEDS: NS IV 1000 ML 1,000 ML IV SCH ×2 (14:31→22:39)
[2021-10-18] MEDS: ENOXAPARIN 40 MG/0.4 ML (LOVENOX) SYR SC SCH (14:33)
[2021-10-18 14:46] VITALS: BP 125/62
[2021-10-18] MEDS ORDERED: EMPA1TAB21 PO (15:21)
[2021-10-18] MEDS ORDERED: FISH1CAP15 PO (15:21)
[2021-10-18] MEDS ORDERED: MULT-1136 PO (15:21)
[2021-10-18] MEDS ORDERED: SEMA3TAB4 PO (15:21)
[2021-10-18] MEDS ORDERED: GLIM1TAB4 PO (15:21)
[2021-10-18 15:36] VITALS: BP 112/63
[2021-10-18] MEDS: inSUlin ASPART (NovoLOG) 1 UNIT/0.01 ML (CHARGE PER UNIT) SC SCH ×2 (16:03→20:37)
[2021-10-18] MEDS: morphine INJ 4 MG/ML 1 ML (VIAL/SYRINGE) IV PRN (16:16)
[2021-10-18] MEDS: ONDANSETRON 4 MG/2 ML (SDV) Z0FRAN IV PRN ×2 (16:19→23:56)
--- NOTE | 2021-10-18 17:22 | History & Physical-Hospitalist ---
History of Present Illness HPI/Chief Complaint CC: Pancreatitis HPI: This is a 36yoWM who has a h/o pancreatitis from elevated TG who presented to the ER with severe abdominal pain after seen at [facility] and told to come to ER. His TG were found to be 5500. He usually takes the Viaspa fish oil 1000mg tabs 2 PO BID but ran out 3 weeks ago because a change in Rx given at pharmacy and nothing else works. Dr Esquivel is the one who put hi on that med. Source: patient, family Exam Limitations: no limitations Date Seen 10/18/21 Time Seen by a Provider: 18:00 Attending Physician [place] PCP Admitting Physician: Ayah Penn DO Attending Physician: Ayah Penn DO Referring Physician Date of Admission Oct 18, 2021 at 13:42 Home Medications & Allergies Home Medications Reviewed patient Home Medication Reconciliation performed by pharmacy medication reconciliations arch support technician and/or nursing. Patients Allergies have been reviewed. Allergies Allergies Coded Allergies No Known Drug Allergies (Unverified08/23/17) Past Cobqhmi-Euncqa-Nhiwnm Hx Patient Social History Marrital Status: Employed/Student: employed Tobacco Use?: No Smoking Status: Never a Smoker Smokeless Tobacco Frequency: Never a User Use of E-Cig and/or Vaping dev: No Substance use?: No Alcohol Use?: No Pt feels they are or have been: No Immunizations Up To Date Tetanus Booster (TDap): Less Than 5 Years Hepatitis A: No Hepatitis B: No Current Status Advance Directives: No Communicates: Verbally Primary Language: Occitan Preferred Spoken Language: Occitan Is interpretation needed?: No Past Medical History Surgeries: Orthopedic, Renal High Cholesterol, Hypertension Kidney Stones Pancreatitis Diabetes, Non-Insulin dep Blood Disorders: No Family Medical History Diabetes mellitus 19 FATHER Myocardial infarction 19 FATHER Review of Systems Constitutional: see HPI EENTM: no symptoms reported Respiratory: no symptoms reported Cardiovascular: no symptoms reported Gastrointestinal: abdominal pain, loss of appetite, nausea, vomiting Genitourinary: no symptoms reported Musculoskeletal: no symptoms reported Skin: no symptoms reported Psychiatric/Neurological: No Symptoms Reported All Other Systems Reviewed Negative Unless Noted: Yes Physical Exam Physical Exam Vital Signs Vital Signs - First Documented 10/18/21 10/18/21 10:35 14:46 Temp 36.4 Pulse 115 Resp 16 B/P (MAP) 138/94 (109) Pulse Ox 97 O2 Delivery Room Air Capillary Refill : Less Than 3 Seconds Height, Weight, BMI Height: 6'0.00" Weight: 263lbs. oz. 119.142038ku; 30.73 BMI Method:Stated General Appearance: No Apparent Distress, Chronically ill, Obese Eyes: Right Eye Normal Inspection, Right Eye PERRL HEENT: PERRL/EOMI, Normal ENT Inspection, Pharynx Normal, Moist Mucous Membranes Neck: Full Range of Motion, Normal Inspection, Non Tender Respiratory: Chest Non Tender, Lungs Clear, Normal Breath Sounds, No Accessory Muscle Use, No Respiratory Distress Cardiovascular: Regular Rate, Rhythm, No Edema, No Gallop, No JVD, No Murmur, Normal Peripheral Pulses Gastrointestinal: Normal Bowel Sounds, No Organomegaly, No Pulsatile Mass, Soft, Tenderness Back: Normal Inspection, No CVA Tenderness, No Vertebral Tenderness Extremity: Normal Capillary Refill, Normal Inspection, Normal Range of Motion, Non Tender, No Calf Tenderness, No Pedal Edema Neurologic/Psychiatric: Alert, Oriented x3, No Motor/Sensory Deficits, Normal Mood/Affect Skin: Normal Color, Warm/Dry Lymphatic: No Adenopathy Results Results/Procedures Labs Laboratory Tests 10/18/21 10:33 Patient resulted labs reviewed. Assessment/Plan Admission Diagnosis Assessment: Pancreatitis HTG HTN Obesity Kidney stone hx Plan: Pain control IVF Monitor closely Admission Status: Inpatient Order (span 2 midnights) Reason for Inpatient Admission: pancreatitis Diagnosis/Problems Diagnosis/Problems (1) Pancreatitis Status: Acute Qualifiers: Chronicity: acute Pancreatitis type: unspecified pancreatitis type Acute pancreatitis complication: no infection or necrosis Qualified Codes: K85.90 - Acute pancreatitis without necrosis or infection, unspecified (2) Dehydration Status: Acute AYAH PENN DO Oct 18, 2021 17:22
[2021-10-18 19:46] VITALS: BP 123/66
[2021-10-18] MEDS: SENNOSIDES 8.6 MG (SENOKOT) TAB PO SCH (20:36)
[2021-10-18] MEDS: DOCUSATE SODIUM 100 MG (COLACE) CAP PO SCH (20:36)
[2021-10-19] VITALS (18 sets, daily range): BP systolic 116–142; BP diastolic 61–88
[2021-10-19] MEDS: morphine INJ 4 MG/ML 1 ML (VIAL/SYRINGE) IV PRN ×2 (04:20→10:31)
[2021-10-19] MEDS: inSUlin ASPART (NovoLOG) 1 UNIT/0.01 ML (CHARGE PER UNIT) SC SCH (05:41)
[2021-10-19 05:59] LABS: BASOPHILS % (AUTO) 0 % (0-10); EOSINOPHILS % (AUTO) 0 % (0-10); HEMATOCRIT 41 % (40-54); HEMOGLOBIN 14.7 g/dL (13.3-17.7); LYMPHOCYTES # (AUTO) 2.9 10^3/uL (1.0-4.0); LYMPHOCYTES % (AUTO) 16 % (12-44); MEAN CORPUSCULAR HEMOGLOBIN 31 pg (25-34); MEAN CORPUSCULAR HGB CONC 36 g/dL (32-36); MEAN CORPUSCULAR VOLUME 86 fL (80-99); MEAN PLATELET VOLUME 12.4 fL (9.0-12.2); MONOCYTES # (AUTO) 1.5 10^3/uL (0.0-1.0); MONOCYTES % (AUTO) 8 % (0-12); NEUTROPHILS % (AUTO) 74 % (42-75); PLATELET COUNT 244 10^3/uL (130-400); WHITE BLOOD COUNT 17.6 10^3/uL (4.3-11.0)
[2021-10-19] MEDS: NS IV 1000 ML 1,000 ML IV SCH (06:11)
[2021-10-19 06:22] LABS: ALBUMIN 3.6 GM/DL (3.2-4.5); POTASSIUM 4.6 MMOL/L (3.6-5.0)
[2021-10-19 06:24] LABS: CALCIUM 8.7 MG/DL (8.5-10.1)
[2021-10-19 06:25] LABS: TOTAL PROTEIN 8.2 GM/DL (6.4-8.2)
[2021-10-19 06:27] LABS: BILIRUBIN,TOTAL 0.4 MG/DL (0.1-1.0)
[2021-10-19 06:28] LABS: CREATININE SERUM 0.97 MG/DL (0.60-1.30)
[2021-10-19 07:29] LABS: ABG BASE EXCESS -17.4 MMOL/L (-2.5-2.5); ABG OXYGEN SATURATION 98 % (94-100); ABG PO2 118 MMHG (79-93)
[2021-10-19 07:34] LABS: ABG PCO2 19 MMHG (35-45); ABG PH 7.26 (7.37-7.43); ABG TCO2 9.4 MMOL/L (21.0-31.0)
[2021-10-19 07:35] LABS: ALLENS TEST YES-POS; INSPIRED O2 ROOM AIR; VENTILATOR NO
[2021-10-19] MEDS: SENNOSIDES 8.6 MG (SENOKOT) TAB PO SCH ×2 (07:50→19:57)
[2021-10-19] MEDS: DOCUSATE SODIUM 100 MG (COLACE) CAP PO SCH ×2 (07:50→19:56)
[2021-10-19] MEDS ORDERED: D5W IV SCH (08:00)
[2021-10-19] MEDS ORDERED: SODIUM BICARBONATE IV SCH (08:00)
[2021-10-19] MEDS: PANTOPRAZOLE 40 MG (PROTONIX) VIAL IV SCH (09:49)
[2021-10-19] MEDS: D5W IV SCH ×2 (09:50→21:02)
[2021-10-19] MEDS: SODIUM BICARBONATE IV SCH ×2 (09:50→21:02)
--- NOTE | 2021-10-19 10:02 | Tele-ICU Consult ---
History of Present Illness History of Present Illness Date Seen by Provider: Oct 19, 2021 Time Seen by Provider: 10:01 History of Present Illness He is a 36-year-old male with past medical history of chronic pancreatitis secondary to hypertriglyceridemia now presents today to the emergency room with a complaint for progressively worsening epigastric pain for the last 2 days associated with nausea but no vomiting. In the emergency room he was worked up with the various laboratory data and found to have a acute pancreatitis with markedly elevated triglycerides 200 which are over 5000. He denies any history of alcohol abuse. He has a history of low gallbladder ejection fraction without any stones. He has a history of renal stones but he has no Pain fever or chills or any radiating pain. He is admitted to the intensive care unit where I have interviewed him via video camera and states that he still has a 10/10 pain in the epigastrium. He is in moderate distress secondary to the pain but no respiratory distress. In view of his marked hypertriglyceridemia I will start him on insulin drip to bring down the hypertriglyceridemia. he is currently on bicarb drip. Discussed with Dr. Penn. Allergies and Home Medications Allergies Coded Allergies: No Known Drug Allergies (Unverified , 08/23/17) Home Medications Empagliflozin/Metformin HCl 12.5 Mg-1,000 Mg Tab.bp.24h, 2 EACH PO DAILY, (Repo rted) Fish Oil/Dha/Epa 1,200 Mg-144 Mg-216 Mg Capsule, 1 EACH PO DAILY, (Reported) Glimepiride 1 Mg Tablet, 2 MG PO DAILY, (Reported) TAKES 2 (1MG) TABS Lisinopril/Hydrochlorothiazide 20 Mg-25 Mg Tablet, 1 EA PO DAILY, (Reported) Multivitamin 1 Each Tablet, 1 EACH PO DAILY, (Reported) Semaglutide 3 Mg Tablet, 3 MG PO DAILY, (Reported) Past Medical/Social/Family Hx Patient Social History Marrital Status: Employed/Student: employed Tobacco Use?: No Smoking Status: Never a Smoker Smokeless Tobacco Frequency: Never a User Use of E-Cig and/or Vaping dev: No Substance use?: No Alcohol Use?: No Pt stated abuse/neglect: No Immunizations Up To Date Influenza Vaccine Up-to-Date: Yes; Up-to-Date Tetanus Booster (TDap): Less Than 5 Years Hepatitis A: No Hepatitis B: No TB Skin Test: None Current Status Advance Directives: No Communicates: Verbally Primary Language: Rwandan Preferred Spoken Language: Rwandan Is interpretation needed?: No Review of Systems Constitutional: see HPI, other (has severe epigastric pain) Other ROS PER RN Focused Exam Lactate Level 10/19/21 07:00: Lactic Acid Level 1.42 Height, Weight, BMI Height: 6'0.00" Weight: 263lbs. oz. 119.926825lr; 30.73 BMI Method:Stated Lactic Acid Level Laboratory Tests Test 10/19/21 07:00 Lactic Acid Level 1.42 MMOL/L (0.50-2.00) Exam Exam Patient acknowledged, consented, and participated in this virtual visit which was conducted using real time audio/video Vital Signs Date Time Temp Pulse Resp B/P (MAP) Pulse Ox O2 Delivery O2 Flow Rate FiO2 10/19/21 09:30 105 24 118/74 (89) 96 Room Air 10/19/21 08:00 35.7 93 20 130/61 (84) 97 Room Air 10/19/21 07:00 97 10/19/21 04:00 36.8 97 18 120/71 (87) 95 Room Air 10/19/21 01:00 100 10/19/21 00:00 36.6 105 18 125/62 (83) 94 Room Air 10/18/21 20:10 103 10/18/21 20:00 95 Room Air 10/18/21 19:46 36.8 105 22 123/66 (85) 95 Room Air 10/18/21 18:05 Room Air 10/18/21 16:22 105 10/18/21 15:36 37.5 109 19 112/63 (79) 99 Room Air 10/18/21 14:46 37.3 112 19 125/62 (83) 95 Room Air 10/18/21 14:03 113 16 125/76 94 10/18/21 10:35 36.4 115 16 138/94 (109) 97 I & O 10/19/21 07:00 Intake Total 4300 ml Output Total 4600 ml Balance -300 ml Height & Weight Height: 6'0.00" Weight: 263lbs. oz. 119.628057fv; 30.73 BMI Method:Stated General Appearance: No Apparent Distress, Chronically ill, Obese HEENT: PERRL/EOMI, Normal ENT Inspection, Pharynx Normal, Moist Mucous Membranes Neck: Full Range of Motion, Normal Inspection, Non Tender Respiratory: Chest Non Tender, Lungs Clear, Normal Breath Sounds, No Accessory Muscle Use, No Respiratory Distress Cardiovascular: Regular Rate, Rhythm, No Edema, No Gallop, No JVD, No Murmur, Normal Peripheral Pulses Capillary Refill: Less Than 3 Seconds Peripheral Pulses: 2+ Radial Pulses (R), 2+ Radial Pulses (L) Gastrointestinal: normal bowel sounds, guarding, tenderness Extremity: Normal Capillary Refill, Normal Inspection, Normal Range of Motion, Non Tender, No Calf Tenderness, No Pedal Edema Neurologic/Psychiatric: Alert, Oriented x3, No Motor/Sensory Deficits, Normal Mood/Affect Skin: Normal Color, Warm/Dry Lymphatic: No Adenopathy Other comments PE PER RN Results Lab Laboratory Tests 10/18/21 10:33 10/19/21 05:56 Assessment/Plan Assessment/Plan 1. Acute pancreatitis on the top of chronic pancreatitis due to hypertriglyceridemia. 2. Familial hypertriglyceridemia with triglycerides level over 5000 3. Severe dehydration 4. High anion gap metabolic acidosis 5. Hyponatremia secondary to dehydration 6. Possible ketoacidosis as evidenced by elevated beta hydroxybutyrate Recommendations 1. Hydrate patient with bicarb drip. Previously he was given IV fluid boluses. 2. We will start him on IV insulin drip and monitor his triglycerides levels daily. Also will monitor his blood sugar levels every hour. 3. Monitor his anion gap, sodium level and bicarb levels closely. 4. We will give him morphine IV as needed for pain. 5. Keep him n.p.o. for now. 6. Discussed with the DURABILITY TECHNICIAN and hospitalist Dr. Ragini Penn. 7. DVT prophylaxis and ulcer prophylaxis.. 8. As an outpatient he should be followed by academic advisor. Critical Care: Critically Ill Patient Time spent with patient (mins): 35 CASSIE DUKE MD Oct 19, 2021 10:02
[2021-10-19] MEDS ORDERED: D5 1/2 NS 1000 ML IV SOLUTION 1,000 ML IV ONE (10:24)
[2021-10-19] MEDS ORDERED: DEXTROSE 50% 50 ML (IMS) SYR IV PRN (10:30)
[2021-10-19] MEDS: 1/2 NS IV SOLUTION 1,000 ML IV SCH ×5 (10:45→20:35)
[2021-10-19] MEDS: POTASSIUM CL 10MEQ/50ML IVPB 50 ML IV SCH ×11 (10:45→23:02)
[2021-10-19] MEDS ORDERED: NS IV 1000 ML 1,000 ML IV SCH (10:45)
[2021-10-19] MEDS ORDERED: POTASSIUM CL 10MEQ/50ML IVPB 50 ML IV ONE (10:49)
[2021-10-19] MEDS: D5 1/2 NS 1000 ML IV SOLUTION 1,000 ML IV SCH ×5 (10:56→23:48)
[2021-10-19] MEDS: ONDANSETRON 4 MG/2 ML (SDV) Z0FRAN IV PRN (11:01)
--- NOTE | 2021-10-19 11:53 | Progress Note - Hospitalist ---
Subjective HPI/CC On Admission Date Seen by Provider: Oct 19, 2021 Time Seen by Provider: 12:00 CC: Pancreatitis HPI: This is a 36yoWM who has a h/o pancreatitis from elevated TG who presented to the ER with severe abdominal pain after seen at [facility] and told to come to ER. His TG were found to be 5500. He usually takes the Viaspa fish oil 1000mg tabs 2 PO BID but ran out 3 weeks ago because a change in Rx given at pharmacy and nothing else works. Dr Esquivel is the one who put hi on that med. Subjective/Events-last exam Patient was moved to ICU due to metabolic acidosis and it appears after w/u he h as normaglycemic ketosis Review of home meds may have placed him at risk for this or pancreatitis could certainly cause it Patient reports pain is about the same Insulin drip will help clear TG and treat ketosis Appreciate EICU management Review of Systems General: Fatigue, Malaise Gastrointestinal: Abdominal Pain Focused Exam Lactate Level 10/19/21 07:00: Lactic Acid Level 1.42 Objective Exam Vital Signs Vital Signs Date Time Temp Pulse Resp B/P (MAP) Pulse Ox O2 Delivery O2 Flow Rate FiO2 10/19/21 20:03 Room Air 10/19/21 20:03 36.6 10/19/21 19:00 111 10/19/21 18:00 16 136/88 (104) 96 Capillary Refill : Less Than 3 Seconds General Appearance: No Apparent Distress, WD/WN, Chronically ill, Obese Respiratory: Lungs Clear, Normal Breath Sounds Cardiovascular: Regular Rate, Rhythm Neurologic/Psychiatric: Alert, Oriented x3, No Motor/Sensory Deficits, Normal Mood/Affect Results/Procedures Lab Laboratory Tests 10/19/21 05:56 10/19/21 13:46 10/19/21 18:05 Patient resulted labs reviewed. Assessment/Plan Assessment and Plan Assess & Plan/Chief Complaint Assessment: Pancreatitis acute Normaglycemic ketosis HTG HTN Obesity Kidney stone hx Plan: Insulin drip EICU consult appreciated along with Dr Garcia consult Pain control IVF Monitor closely Critical Care Critically Ill Patient Diagnosis/Problems Diagnosis/Problems (1) Pancreatitis Status: Acute Qualifiers: Chronicity: acute Pancreatitis type: unspecified pancreatitis type Acute pancreatitis complication: no infection or necrosis Qualified Codes: K85.90 - Acute pancreatitis without necrosis or infection, unspecified (2) Dehydration Status: Acute ADAN GREEN DO Oct 19, 2021 11:53
[2021-10-19] MEDS ORDERED: inSUlin ASPART (NovoLOG) 1 UNIT/0.01 ML (CHARGE PER UNIT) SC SCH (12:00)
[2021-10-19] MEDS: fentaNYL INJ 100 MCG/2 ML AMP IVP PRN ×5 (12:12→22:02)
[2021-10-19] MEDS: HYDROcodone/APAP 7.5 MG/325 MG (LORTAB, LORCET PLUS) TABLET PO PRN ×3 (13:07→23:02)
--- NOTE | 2021-10-19 13:16 | CONSULTATION REPORT ---
DATE OF SERVICE: 10/19/2021 ATTENDING PRIMARY CARE PHYSICIAN: Dr. Harrison Tavarez. ADMITTING PHYSICIAN: Dr. Penn. HISTORY OF PRESENT ILLNESS: The patient is a 36-year-old male who presented to the Emergency Department with abdominal pain. His triglycerides were found to be 5500. He has a known history of hypertriglyceridemia and is on fenofibrate. He continued to have elevated triglycerides and vasilar was added; however, he ran out of the medication recently. A CT scan was performed, which did show a noncomplicated pancreatitis at the tail of the pancreas. The patient also states that he has had some issues with his gallbladder in the past. He did have a HIDA scan performed in 2018 where his ejection fraction was 40%. He does not drink alcohol. PAST MEDICAL HISTORY: Hypercholesterolemia, hypertriglyceridemia, history of nephrolithiasis, hypertension, diabetes. ALLERGIES: NO KNOWN DRUG ALLERGIES. MEDICATIONS: Empagliflozin/metformin 12.08/999 mg daily, fish oil 1200 mg daily, glimepiride 1 mg daily, lisinopril/hydrochlorothiazide 20/25 mg daily, semaglutide 3 mg daily. SOCIAL HISTORY: Negative smoke, negative alcohol. FAMILY HISTORY: Father, heart disease. VITAL SIGNS: Temperature 36.6, blood pressure 127/75, pulse 99, respirations 20, pulse ox 95% on room air. REVIEW OF SYSTEMS: Well-nourished male, currently guarded secondary to the abdominal tract. He is not experiencing any shortness of breath or difficulty breathing. No chest pain, palpitations, diaphoresis. Intermittent episodes of nausea, no vomiting. He does not report any diarrhea nor constipation as well as no red blood per rectum nor any dark tarry stools. No fever or chills, no recent inadvertent weight loss. All other review of systems negative. PHYSICAL EXAMINATION: CHEST: Good breath sounds bilaterally. HEART: Regular, no murmurs. EXTREMITIES: No lower extremity edema, negative Homans sign. HEENT: No scleral icterus. NECK: No cervical lymphadenopathy. ABDOMEN: Soft, nondistended. There is significant pain across the upper portions of the abdomen upon palpation with voluntary guarding, no rebound. No hernias. SKIN: Warm, dry. LABORATORY DATA: WBC 17.6, hemoglobin 14.7, hematocrit 41, platelets 244, BUN 10, creatinine 0.97. ASSESSMENT AND PLAN: A 36-year-old male with hypertriglyceridemia-induced noncomplicated pancreatitis. His initial [place] criteria is 1, which portends a good prognosis. We will continue medical management with bowel rest with clear liquids, IV fluids as well as adequate pain control. Job ID: [id number] DocumentID: [id number] Dictated Date: 10/19/2021 12:08:30 Business Analysis Professional Date: 10/19/2021 13:15:45 Dictated By: KARINA ANTUNEZ MD MTDD
[2021-10-19] MEDS: ENOXAPARIN 40 MG/0.4 ML (LOVENOX) SYR SC SCH (14:11)
[2021-10-19 14:13] LABS: POTASSIUM 4.3 MMOL/L (3.6-5.0)
[2021-10-19 14:15] LABS: CALCIUM 8.6 MG/DL (8.5-10.1)
[2021-10-19 14:19] LABS: CREATININE SERUM 0.99 MG/DL (0.60-1.30)
[2021-10-19] MEDS ORDERED: SODIUM BICARB 8.4% 50 MEQ/50 ML (ABBOTT) SYR IV ONE ×2 (14:30→18:45)
[2021-10-19 18:24] LABS: POTASSIUM 3.7 MMOL/L (3.6-5.0)
[2021-10-19 18:25] LABS: CALCIUM 8.5 MG/DL (8.5-10.1)
[2021-10-19 18:30] LABS: CREATININE SERUM 0.91 MG/DL (0.60-1.30)
[2021-10-19] MEDS ORDERED: SODIUM BICARB 8.4% 50 MEQ/50 ML (ABBOTT) SYR ONE (18:52)
[2021-10-19 22:26] LABS: POTASSIUM 3.6 MMOL/L (3.6-5.0)
[2021-10-19 22:27] LABS: CALCIUM 8.4 MG/DL (8.5-10.1)
[2021-10-19 22:32] LABS: CREATININE SERUM 0.83 MG/DL (0.60-1.30)
[2021-10-20] VITALS (24 sets, daily range): BP systolic 96–175; BP diastolic 72–109
[2021-10-20] MEDS: fentaNYL INJ 100 MCG/2 ML AMP IVP PRN ×8 (00:23→17:42)
[2021-10-20] MEDS: POTASSIUM CL 10MEQ/50ML IVPB 50 ML IV SCH ×7 (01:58→23:43)
[2021-10-20] MEDS: 1/2 NS IV SOLUTION 1,000 ML IV SCH ×2 (02:12→19:11)
[2021-10-20 02:44] LABS: POTASSIUM 3.6 MMOL/L (3.6-5.0)
[2021-10-20 02:45] LABS: CALCIUM 8.5 MG/DL (8.5-10.1)
[2021-10-20 02:49] LABS: CREATININE SERUM 0.8 MG/DL (0.60-1.30)
[2021-10-20] MEDS: D5 1/2 NS 1000 ML IV SOLUTION 1,000 ML IV SCH ×5 (04:04→21:34)
[2021-10-20] MEDS: MAGNESIUM 1 GM/100 ML IVPB 100 ML IV SCH (04:29)
[2021-10-20 05:17] LABS: ABG BASE EXCESS -2.8 MMOL/L (-2.5-2.5); ABG OXYGEN SATURATION 97 % (94-100); ABG PCO2 36 MMHG (35-45); ABG PH 7.39 (7.37-7.43); ABG PO2 73 MMHG (79-93); ABG TCO2 22.5 MMOL/L (21.0-31.0)
[2021-10-20 05:18] LABS: INSPIRED O2 NOT INDICATED; PATIENT TEMP NOT INDICATED; VENTILATOR NO
[2021-10-20 06:15] LABS: ALBUMIN 3.1 GM/DL (3.2-4.5); POTASSIUM 3.7 MMOL/L (3.6-5.0)
[2021-10-20 06:16] LABS: CALCIUM 8.4 MG/DL (8.5-10.1)
[2021-10-20 06:17] LABS: TOTAL PROTEIN 6.7 GM/DL (6.4-8.2)
--- NOTE | 2021-10-20 06:17 | Diagnostic Imaging Report ---
INDICATION: Dyspnea. FINDINGS: The heart size, mediastinal configuration, and pulmonary vascularity are within normal limits. There is no pleural effusion, pneumothorax, or pneumonia. The osseous structures are unremarkable. IMPRESSION: No acute cardiopulmonary abnormality. Dictated by: Dictated on workstation # [id number]
[2021-10-20 06:19] LABS: BILIRUBIN,TOTAL 0.4 MG/DL (0.1-1.0)
[2021-10-20 06:20] LABS: PHOSPHORUS 1.3 MG/DL (2.3-4.7)
[2021-10-20 06:21] LABS: CREATININE SERUM 0.74 MG/DL (0.60-1.30)
[2021-10-20] MEDS: SODIUM BICARBONATE IV SCH ×3 (06:26→21:33)
[2021-10-20] MEDS: D5W IV SCH ×3 (06:26→21:33)
[2021-10-20] MEDS: KCL 20 MEQ TAB (K-DUR) PO SCH (06:26)
--- NOTE | 2021-10-20 06:49 | Progress Note - Hospitalist ---
Subjective HPI/CC On Admission Date Seen by Provider: Oct 20, 2021 Time Seen by Provider: 11:00 CC: Pancreatitis HPI: This is a 36yoWM who has a h/o pancreatitis from elevated TG who presented to the ER with severe abdominal pain after seen at [facility] and told to come to ER. His TG were found to be 5500. He usually takes the Viaspa fish oil 1000mg tabs 2 PO BID but ran out 3 weeks ago because a change in Rx given at pharmacy and nothing else works. Dr Esquivel is the one who put hi on that med. Subjective/Events-last exam Patient doing better Advancing diet Ozempic can cause pancreatitis and Jardiance can cause ketoacidosis with similar presentation of non-hyperglycemic type Pain improved Review of Systems General: Fatigue Gastrointestinal: Nausea, Abdominal Pain Focused Exam Lactate Level 10/19/21 07:00: Lactic Acid Level 1.42 Objective Exam Vital Signs Vital Signs Date Time Temp Pulse Resp B/P (MAP) Pulse Ox O2 Delivery O2 Flow Rate FiO2 10/20/21 17:00 98 28 147/90 (109) 96 Room Air 10/20/21 15:46 36.8 Capillary Refill : Less Than 3 Seconds General Appearance: No Apparent Distress, WD/WN, Chronically ill, Obese Respiratory: Lungs Clear, Normal Breath Sounds Cardiovascular: Regular Rate, Rhythm Neurologic/Psychiatric: Alert, Oriented x3, No Motor/Sensory Deficits, Normal Mood/Affect Results/Procedures Lab Laboratory Tests 10/19/21 18:05 10/19/21 22:10 10/20/21 02:18 10/20/21 05:50 10/20/21 06:40 10/20/21 10:48 10/20/21 16:05 Patient resulted labs reviewed. Assessment/Plan Assessment and Plan Assess & Plan/Chief Complaint Assessment: Pancreatitis acute likely due to HTG and Ozempic Non-hyperglycemic ketosis due to pancreatitis and Jardiance HTG HTN Obesity Kidney stone hx Plan: Insulin drip EICU consult appreciated along with Dr Garcia consult Pain control IVF Monitor closely Critical Care Critically Ill Patient Diagnosis/Problems Diagnosis/Problems (1) Pancreatitis Status: Acute Qualifiers: Chronicity: acute Pancreatitis type: unspecified pancreatitis type Acute pancreatitis complication: no infection or necrosis Qualified Codes: K85.90 - Acute pancreatitis without necrosis or infection, unspecified (2) Dehydration Status: Acute ADAN GREEN DO Oct 20, 2021 06:49
[2021-10-20 07:30] LABS: HEMOGLOBIN 11.9 g/dL (13.3-17.7)
[2021-10-20 07:33] LABS: BASOPHILS % (AUTO) 0 % (0-10); EOSINOPHILS # (AUTO) 0.1 10^3/uL (0.0-0.3); EOSINOPHILS % (AUTO) 1 % (0-10); HEMATOCRIT 36 % (40-54); LYMPHOCYTES # (AUTO) 1.6 10^3/uL (1.0-4.0); LYMPHOCYTES % (AUTO) 21 % (12-44); MEAN CORPUSCULAR HEMOGLOBIN 29 pg (25-34); MEAN CORPUSCULAR HGB CONC 34 g/dL (32-36); MEAN CORPUSCULAR VOLUME 87 fL (80-99); MEAN PLATELET VOLUME 11.4 fL (9.0-12.2); MONOCYTES # (AUTO) 0.6 10^3/uL (0.0-1.0); MONOCYTES % (AUTO) 8 % (0-12); NEUTROPHILS # (AUTO) 5.3 10^3/uL (1.8-7.8); NEUTROPHILS % (AUTO) 69 % (42-75); PLATELET COUNT 141 10^3/uL (130-400); WHITE BLOOD COUNT 7.6 10^3/uL (4.3-11.0)
[2021-10-20] MEDS: SENNOSIDES 8.6 MG (SENOKOT) TAB PO SCH ×2 (08:11→22:19)
[2021-10-20] MEDS: PANTOPRAZOLE 40 MG (PROTONIX) VIAL IV SCH (08:11)
[2021-10-20] MEDS: DOCUSATE SODIUM 100 MG (COLACE) CAP PO SCH ×2 (08:11→22:18)
--- NOTE | 2021-10-20 08:51 | Tele-ICU Progress Note ---
Subjective Date Seen by a Provider: Oct 20, 2021 Time Seen by a Provider: 07:15 Subjective/Events-last exam This virtual visit was conducted using real time audio/video. Thank you for asking us to see this patient for pancreatitis, hypertrigliceridemia, dehydration. Recent events: Good UO. Good pain relief with Fentanyl. PE: VSS. O2 sat 98% on RA. HEENT: No obvious masses, adenopathy or JVD. Chest: clear to auscultation. CV: RRR S1 S2 No murmur or added sounds. Abd: Mildly tender. Bowel sounds Y. : Unremarkable. Linn [employer]/psychiatric: Grossly intact. No obvious focal findings. Extremities: No edema. Capillary refill < 3 seconds. Skin: unremarkable. Results: Elevated BG 171, trig. 1388. Decreased Na 129, HB 11.9. B.26/19/118. CXR: Clear . Available chart/ vitals / labs / images reviewed. Video assessment done using teleICU camera, rest of exam as per RN. A/P: No respiratory issues: . Critical Care: critically ill patient. Cont. IVF, Bicarb., Fent., PPI, IV insulin, Puma. Discussed with RN Maren. Asked RN to reach out to eICU if any questions or concerns later. Time spent with patient/coordination of care with other health professionals (mins): 25 Sepsis Event Evaluation Height, Weight, BMI Height: 6'0.00" Weight: 263lbs. oz. 119.718852db; 30.73 BMI Method:Stated Focused Exam Lactate Level 10/19/21 07:00: Lactic Acid Level 1.42 Exam Exam Patient acknowledged, consented, and participated in this virtual visit which was conducted using real time audio/video Vital Signs Date Time Temp Pulse Resp B/P (MAP) Pulse Ox O2 Delivery O2 Flow Rate FiO2 10/20/21 08:00 94 132/83 (99) 96 Room Air 10/20/21 07:00 105 11 131/87 (102) 95 Room Air 10/20/21 07:00 90 10/20/21 06:00 95 15 129/75 (93) 94 Room Air 10/20/21 05:00 98 24 121/89 (100) 96 Room Air 10/20/21 04:00 93 28 125/74 (91) 96 Room Air 10/20/21 04:00 Room Air 10/20/21 03:00 92 20 125/77 (93) 93 Room Air 10/20/21 02:00 98 28 96/77 (83) 97 Room Air 10/20/21 01:00 96 10/20/21 01:00 93 19 124/76 (92) 91 Room Air 10/20/21 00:00 Room Air 10/20/21 00:00 90 15 122/76 (91) 94 Room Air 10/19/21 23:00 99 19 116/85 (95) 94 Room Air 10/19/21 22:00 100 14 140/88 (105) 97 Room Air 10/19/21 21:00 99 14 123/80 (94) 94 Room Air 10/19/21 20:03 Room Air 10/19/21 20:03 36.6 10/19/21 20:00 103 15 131/81 (98) 94 Room Air 10/19/21 19:00 106 15 136/78 (97) 99 Room Air 10/19/21 19:00 111 10/19/21 18:34 36.7 10/19/21 18:00 102 16 136/88 (104) 96 Room Air 10/19/21 17:00 105 15 142/85 (104) 95 Room Air 10/19/21 16:00 95 Room Air 10/19/21 16:00 104 19 132/86 (101) 97 Room Air 10/19/21 16:00 37.0 10/19/21 15:10 36.4 10/19/21 15:00 110 27 128/82 (97) 98 Room Air 10/19/21 14:00 107 26 127/79 (95) 96 Room Air 10/19/21 13:00 106 27 130/80 (97) 98 Room Air 10/19/21 12:53 96 10/19/21 12:00 95 Room Air 10/19/21 12:00 103 122/75 (91) 96 Room Air 10/19/21 12:00 37.0 10/19/21 11:14 36.6 10/19/21 11:00 99 127/75 (92) 95 Room Air 10/19/21 10:00 102 20 125/76 (92) 95 Room Air 10/19/21 09:30 36.6 10/19/21 09:30 105 24 118/74 (89) 96 Room Air I & O 10/20/21 07:00 Intake Total 3600 ml Output Total 7775 ml Balance -4175 ml Height & Weight Height: 6'0.00" Weight: 263lbs. oz. 119.527081ep; 30.73 BMI Method:Stated General Appearance: No Apparent Distress, WD/WN, Chronically ill, Obese HEENT: PERRL/EOMI, Normal ENT Inspection, Pharynx Normal, Moist Mucous Membranes Neck: Full Range of Motion, Normal Inspection, Non Tender Respiratory: Lungs Clear, Normal Breath Sounds Cardiovascular: Regular Rate, Rhythm Capillary Refill: Less Than 3 Seconds Peripheral Pulses: 2+ Radial Pulses (R), 2+ Radial Pulses (L) Gastrointestinal: normal bowel sounds, guarding, tenderness Extremity: Normal Capillary Refill, Normal Inspection, Normal Range of Motion, Non Tender, No Calf Tenderness, No Pedal Edema Neurologic/Psychiatric: Alert, Oriented x3, No Motor/Sensory Deficits, Normal Mood/Affect Skin: Normal Color, Warm/Dry Lymphatic: No Adenopathy Results Lab Laboratory Tests 10/18/21 10:33 10/19/21 05:56 10/19/21 13:46 10/19/21 18:05 10/19/21 22:10 10/20/21 02:18 10/20/21 05:50 10/20/21 06:40 Assessment/Plan Assessment/Plan See free text. Critical Care: Critically Ill Patient DARIO RUTLEDGE MD Oct 20, 2021 08:50
--- NOTE | 2021-10-20 10:10 | Progress Note ---
Subjective Date Seen by a Provider: Oct 20, 2021 Time Seen by a Provider: 10:00 Subjective/Events-last exam doing better today. still has abd pain. tolerating clears. ambulating well. Focused Exam Lactate Level 10/19/21 07:00: Lactic Acid Level 1.42 Objective Exam Vital Signs Date Time Temp Pulse Resp B/P (MAP) Pulse Ox O2 Delivery O2 Flow Rate FiO2 10/20/21 10:00 102 22 154/90 (111) 96 Room Air 10/20/21 09:00 93 16 145/89 (107) 96 Room Air 10/20/21 08:00 94 132/83 (99) 96 Room Air 10/20/21 08:00 36.3 10/20/21 07:00 105 11 131/87 (102) 95 Room Air 10/20/21 07:00 90 10/20/21 06:00 95 15 129/75 (93) 94 Room Air 10/20/21 05:00 98 24 121/89 (100) 96 Room Air 10/20/21 04:00 93 28 125/74 (91) 96 Room Air 10/20/21 04:00 Room Air 10/20/21 03:00 92 20 125/77 (93) 93 Room Air 10/20/21 02:00 98 28 96/77 (83) 97 Room Air 10/20/21 01:00 96 10/20/21 01:00 93 19 124/76 (92) 91 Room Air 10/20/21 00:00 Room Air 10/20/21 00:00 90 15 122/76 (91) 94 Room Air 10/19/21 23:00 99 19 116/85 (95) 94 Room Air 10/19/21 22:00 100 14 140/88 (105) 97 Room Air 10/19/21 21:00 99 14 123/80 (94) 94 Room Air 10/19/21 20:03 Room Air 10/19/21 20:03 36.6 10/19/21 20:00 103 15 131/81 (98) 94 Room Air 10/19/21 19:00 106 15 136/78 (97) 99 Room Air 10/19/21 19:00 111 10/19/21 18:34 36.7 10/19/21 18:00 102 16 136/88 (104) 96 Room Air 10/19/21 17:00 105 15 142/85 (104) 95 Room Air 10/19/21 16:00 95 Room Air 10/19/21 16:00 104 19 132/86 (101) 97 Room Air 10/19/21 16:00 37.0 10/19/21 15:10 36.4 10/19/21 15:00 110 27 128/82 (97) 98 Room Air 10/19/21 14:00 107 26 127/79 (95) 96 Room Air 10/19/21 13:00 106 27 130/80 (97) 98 Room Air 10/19/21 12:53 96 10/19/21 12:00 95 Room Air 10/19/21 12:00 103 122/75 (91) 96 Room Air 10/19/21 12:00 37.0 10/19/21 11:14 36.6 10/19/21 11:00 99 127/75 (92) 95 Room Air I & O 10/20/21 07:00 Intake Total 3600 ml Output Total 7775 ml Balance -4175 ml Capillary Refill : Less Than 3 Seconds General Appearance: No Apparent Distress HEENT: PERRL/EOMI Neck: Full Range of Motion Respiratory: Chest Non Tender, Lungs Clear, Normal Breath Sounds Cardiovascular: Regular Rate, Rhythm Gastrointestinal: soft, tenderness Extremity: Normal Capillary Refill Neurologic/Psychiatric: Alert, Oriented x3 Skin: Normal Color Lymphatic: No Adenopathy Results Lab Laboratory Tests 10/19/21 13:46: Sodium Level 126L, Potassium Level 4.3, Chloride Level 100, Carbon Dioxide Level 9*L, Anion Gap 17H, Blood Urea Nitrogen 9, Creatinine 0.99, Estimat Glomerular Filtration Rate 101, BUN/Creatinine Ratio 9, Glucose Level 191H, Calcium Level 8.6 10/19/21 18:05: Sodium Level 129L, Potassium Level 3.7, Chloride Level 100, Carbon Dioxide Level 15L, Anion Gap 14, Blood Urea Nitrogen 8, Creatinine 0.91, Estimat Glomerular Filtration Rate 112, BUN/Creatinine Ratio 9, Glucose Level 167H, Calcium Level 8.5 10/19/21 22:10: Sodium Level 131L, Potassium Level 3.6, Chloride Level 99, Carbon Dioxide Level 17L, Anion Gap 15H, Blood Urea Nitrogen 8, Creatinine 0.83, Estimat Glomerular Filtration Rate 116, BUN/Creatinine Ratio 10, Glucose Level 169H, Calcium Level 8.4L 10/20/21 02:18: Sodium Level 131L, Potassium Level 3.6, Chloride Level 100, Carbon Dioxide Level 18L, Anion Gap 13, Blood Urea Nitrogen 7, Creatinine 0.80, Estimat Glomerular Filtration Rate 118, BUN/Creatinine Ratio 9, Glucose Level 178H, Calcium Level 8.5, Magnesium Level 2.0 10/20/21 05:09: Blood Gas Puncture Site NOT INDICATED, Blood Gas Patient Temperature NOT INDICATED, Arterial Blood pH 7.39, Arterial Blood Partial Pressure CO2 36, Arterial Blood Partial Pressure O2 73L, Arterial Blood HCO3 21L, Arterial Blood Total CO2 22.5, Arterial Blood Oxygen Saturation 97, Arterial Blood Base Excess -2.8L, Jamil Test NA, Blood Gas Ventilator Setting NO, Blood Gas Inspired Oxygen NOT INDICATED 10/20/21 05:50: Sodium Level 129L, Potassium Level 3.7, Chloride Level 99, Carbon Dioxide Level 17L, Anion Gap 13, Blood Urea Nitrogen 7, Creatinine 0.74, Estimat Glomerular Filtration Rate 120, BUN/Creatinine Ratio 9, Glucose Level 171H, Calcium Level 8.4L, Corrected Calcium 9.1, Phosphorus Level 1.3L, Magnesium Level 2.0, Total Bilirubin 0.4, Aspartate Amino Transf (AST/SGOT) 14, Alanine Aminotransferase (ALT/SGPT) 19, Alkaline Phosphatase 37L, Total Protein 6.7, Albumin 3.1L, Triglycerides Level 1388H, Lipase 38, Procalcitonin 0.26H 10/20/21 06:40: White Blood Count 7.6, Red Blood Count 4.10L, Hemoglobin 11.9L, Hematocrit 36L, Mean Corpuscular Volume 87, Mean Corpuscular Hemoglobin 29, Mean Corpuscular Hemoglobin Concent 34, Red Cell Distribution Width 14.5, Platelet Count 141, Mean Platelet Volume 11.4, Immature Granulocyte % (Auto) 1, Neutrophils (%) (Auto) 69, Lymphocytes (%) (Auto) 21, Monocytes (%) (Auto) 8, Eosinophils (%) (Auto) 1, Basophils (%) (Auto) 0, Neutrophils # (Auto) 5.3, Lymphocytes # (Auto) 1.6, Monocytes # (Auto) 0.6, Eosinophils # (Auto) 0.1, Basophils # (Auto) 0.0, Immature Granulocyte # (Auto) 0.0, Percent Immature Platelet Fraction 9.0H Microbiology 10/19/21 MRSA Screen - Final, Complete MRSA not isolated Assessment/Plan Assessment/Plan Assess & Plan/Chief Complaint hypertriglyceridemia induced acute non-complicated pancreatitis. low fat diet. u/s GB and biliary tree in am. continue ambulation. may go to floor per surg perspective. KARINA ANTUNEZ MD Oct 20, 2021 10:10
[2021-10-20 11:31] LABS: CALCIUM 7.7 MG/DL (8.5-10.1); CREATININE SERUM 0.78 MG/DL (0.60-1.30); POTASSIUM 3.1 MMOL/L (3.6-5.0)
[2021-10-20 11:38] LABS: ALBUMIN 2.8 GM/DL (3.2-4.5)
[2021-10-20 11:41] LABS: TOTAL PROTEIN 5.9 GM/DL (6.4-8.2)
[2021-10-20 11:43] LABS: BILIRUBIN,TOTAL 0.3 MG/DL (0.1-1.0)
[2021-10-20] MEDS: ENOXAPARIN 40 MG/0.4 ML (LOVENOX) SYR SC SCH (15:29)
[2021-10-20 16:22] LABS: POTASSIUM 3.5 MMOL/L (3.6-5.0)
[2021-10-20 16:23] LABS: CALCIUM 8.9 MG/DL (8.5-10.1)
[2021-10-20 16:28] LABS: CREATININE SERUM 0.71 MG/DL (0.60-1.30)
[2021-10-20] MEDS ORDERED: cloNIDine 0.1 MG (CATAPRES) TAB PO PRN (17:15)
[2021-10-20] MEDS ORDERED: meTOprolol TARTRATE 25 MG (LOPRESSOR) TABLET PO ONE (17:15)
[2021-10-20] MEDS ORDERED: amLODIPine 5 MG (NORVASC) TAB PO ONE (17:15)
[2021-10-20] MEDS: morphine INJ 4 MG/ML 1 ML (VIAL/SYRINGE) IV PRN (19:50)
[2021-10-20 20:31] LABS: BASOPHILS % (AUTO) 0 % (0-10); EOSINOPHILS # (AUTO) 0.2 10^3/uL (0.0-0.3); EOSINOPHILS % (AUTO) 2 % (0-10); HEMATOCRIT 37 % (40-54); LYMPHOCYTES # (AUTO) 2.2 10^3/uL (1.0-4.0); LYMPHOCYTES % (AUTO) 29 % (12-44); MEAN CORPUSCULAR HEMOGLOBIN 30 pg (25-34); MEAN CORPUSCULAR HGB CONC 36 g/dL (32-36); MEAN CORPUSCULAR VOLUME 83 fL (80-99); MEAN PLATELET VOLUME 11.4 fL (9.0-12.2); MONOCYTES # (AUTO) 0.5 10^3/uL (0.0-1.0); MONOCYTES % (AUTO) 7 % (0-12); NEUTROPHILS # (AUTO) 4.6 10^3/uL (1.8-7.8); NEUTROPHILS % (AUTO) 61 % (42-75); PLATELET COUNT 182 10^3/uL (130-400); WHITE BLOOD COUNT 7.6 10^3/uL (4.3-11.0)
[2021-10-20 20:41] LABS: POTASSIUM 3.8 MMOL/L (3.6-5.0)
[2021-10-20 20:42] LABS: CALCIUM 8.7 MG/DL (8.5-10.1)
[2021-10-20 20:46] LABS: PHOSPHORUS 1.4 MG/DL (2.3-4.7)
[2021-10-20 20:47] LABS: CREATININE SERUM 0.7 MG/DL (0.60-1.30)
[2021-10-20] MEDS: meTOprolol TARTRATE 25 MG (LOPRESSOR) TABLET PO SCH (21:42)
[2021-10-21] VITALS (24 sets, daily range): BP systolic 117–159; BP diastolic 66–96
[2021-10-21] MEDS: fentaNYL INJ 100 MCG/2 ML AMP IVP PRN ×3 (00:34→10:05)
[2021-10-21] MEDS: ONDANSETRON 4 MG/2 ML (SDV) Z0FRAN IV PRN (00:34)
[2021-10-21 00:43] LABS: POTASSIUM 3.6 MMOL/L (3.6-5.0)
[2021-10-21 00:45] LABS: CALCIUM 8.5 MG/DL (8.5-10.1)
[2021-10-21 00:49] LABS: CREATININE SERUM 0.63 MG/DL (0.60-1.30)
[2021-10-21] MEDS: HYDROcodone/APAP 7.5 MG/325 MG (LORTAB, LORCET PLUS) TABLET PO PRN ×2 (01:08→12:34)
[2021-10-21 04:38] LABS: BASOPHILS % (AUTO) 0 % (0-10); EOSINOPHILS # (AUTO) 0.2 10^3/uL (0.0-0.3); EOSINOPHILS % (AUTO) 2 % (0-10); HEMATOCRIT 36 % (40-54); HEMOGLOBIN 12.5 g/dL (13.3-17.7); LYMPHOCYTES # (AUTO) 2.3 10^3/uL (1.0-4.0); LYMPHOCYTES % (AUTO) 33 % (12-44); MEAN CORPUSCULAR HEMOGLOBIN 29 pg (25-34); MEAN CORPUSCULAR HGB CONC 35 g/dL (32-36); MEAN CORPUSCULAR VOLUME 84 fL (80-99); MEAN PLATELET VOLUME 11.4 fL (9.0-12.2); MONOCYTES # (AUTO) 0.6 10^3/uL (0.0-1.0); MONOCYTES % (AUTO) 9 % (0-12); NEUTROPHILS # (AUTO) 3.9 10^3/uL (1.8-7.8); NEUTROPHILS % (AUTO) 55 % (42-75); PLATELET COUNT 157 10^3/uL (130-400); WHITE BLOOD COUNT 7.1 10^3/uL (4.3-11.0)
[2021-10-21 04:55] LABS: ALBUMIN 3.1 GM/DL (3.2-4.5); POTASSIUM 3.9 MMOL/L (3.6-5.0)
[2021-10-21 04:56] LABS: CALCIUM 8.6 MG/DL (8.5-10.1)
[2021-10-21] MEDS: POTASSIUM CL 10MEQ/50ML IVPB 50 ML IV SCH ×9 (04:56→23:21)
[2021-10-21 04:59] LABS: BILIRUBIN,TOTAL 0.2 MG/DL (0.1-1.0)
[2021-10-21 05:01] LABS: CREATININE SERUM 0.63 MG/DL (0.60-1.30); PHOSPHORUS 2.5 MG/DL (2.3-4.7)
[2021-10-21 05:04] LABS: MAGNESIUM 2.1 MG/DL (1.6-2.4)
[2021-10-21 05:54] LABS: ABG BASE EXCESS -0.6 MMOL/L (-2.5-2.5); ABG OXYGEN SATURATION 99 % (94-100); ABG PCO2 40 MMHG (35-45); ABG PH 7.39 (7.37-7.43); ABG PO2 105 MMHG (79-93); ABG TCO2 24.9 MMOL/L (21.0-31.0)
[2021-10-21 05:55] LABS: INSPIRED O2 NOT INDICATED; PATIENT TEMP NOT INDICATED; VENTILATOR NO
[2021-10-21] MEDS: MAGNESIUM 1 GM/100 ML IVPB 100 ML IV SCH (06:05)
[2021-10-21] MEDS: KCL 20 MEQ TAB (K-DUR) PO SCH (06:06)
[2021-10-21] MEDS: D5 1/2 NS 1000 ML IV SOLUTION 1,000 ML IV SCH ×2 (06:38→10:38)
[2021-10-21] MEDS: PANTOPRAZOLE 40 MG (PROTONIX) VIAL IV SCH (08:37)
[2021-10-21 09:04] LABS: POTASSIUM 3.8 MMOL/L (3.6-5.0)
[2021-10-21 09:06] LABS: CALCIUM 8.9 MG/DL (8.5-10.1)
[2021-10-21 09:10] LABS: CREATININE SERUM 0.64 MG/DL (0.60-1.30)
--- NOTE | 2021-10-21 09:23 | Diagnostic Imaging Report ---
PROCEDURE: US Gallbladder. TECHNIQUE: Multiple real-time grayscale images were obtained over the right upper quadrant in various projections. INDICATION: Pancreatitis. Abdominal pain. Comparison made to CT scan 10/18/2021. FINDINGS: There is hepatomegaly with fatty liver change. Long axis of the liver is 24 cm. There are no focal liver lesions. Bile ducts are not dilated. The common duct measures 4 mm. The gallbladder shows no evidence of gallstones or wall thickening. Portions of pancreas visualized and normal. The tail is obscured by bowel gas. The pancreatic duct does not appear dilated. The aorta is obscured by bowel gas. The portal vein shows normal flow with Doppler sampling. Right kidney measures 13 x 6.5 x 7 cm. No hydronephrosis or calculi. There is no ascites. Negative Hess sign. IMPRESSION: 1. Hepatomegaly with fatty changes of the liver. 2. The bile duct and pancreatic duct are not dilated. No evidence of colon cystitis. Dictated by: Dictated on workstation # [id number]
[2021-10-21] MEDS: DOCUSATE SODIUM 100 MG (COLACE) CAP PO SCH ×2 (09:41→21:53)
[2021-10-21] MEDS: SENNOSIDES 8.6 MG (SENOKOT) TAB PO SCH ×2 (09:41→21:53)
--- NOTE | 2021-10-21 09:44 | Tele-ICU Progress Note ---
Subjective Date Seen by a Provider: Oct 21, 2021 Time Seen by a Provider: 09:02 Subjective/Events-last exam (Tele-ICU Physician , Progress Note ) Available chart/ vitals / labs / Images reviewed Video assessment done using teleICU camera, rest of exam as per RN Discussed with RN , EXAM PER RN Events overnight : Afebrile FiO2 - ra I/O = neg Drips: insulin d51/2 125 d5w bicarn 50 bicarb Pressors: , hemodynamically stable Consultants: montrell Hospital course: A/P Acute pancreatitis on the top of chronic pancreatitis due to hypertriglyceridemia. Familial hypertriglyceridemia with triglycerides level over 5000 High anion gap metabolic acidosis Hyponatremia secondary to dehydration Possible ketoacidosis as evidenced by elevated beta hydroxybutyrate PLAN stop bicarb drip, cont IVF IV insulin drip and monitor his triglycerides levels daily.- aiming to stop when TGL 500 , but reportedly TGL baseline 1000 - then will aim clise to this level Monitor his anion gap, sodium level and bicarb levels closely. PRN meds for pain. u/s GB and biliary tree today DVT prophylaxis and ulcer prophylaxis.. Lines : (Central Line Necessity Reviewed) Linn: void OG: Nutrition: Analgesia: Anxiety/ delirium VTE Prophylaxis: mesha 40 Stress Ulcer Prophylaxis: ppi Plans in collaboration with bedside consultants and IM MDs. Discussed with RN to reach out if any questions or concerns A total of 31 minutes of critical care time was devoted to this patient today, required to treat and/or prevent further deterioration of critical care condition ( as above) . Sepsis Event Evaluation Height, Weight, BMI Height: 6'0.00" Weight: 263lbs. oz. 119.530809gc; 30.73 BMI Method:Stated Focused Exam Lactate Level 10/19/21 07:00: Lactic Acid Level 1.42 Exam Exam Patient acknowledged, consented, and participated in this virtual visit which was conducted using real time audio/video Vital Signs Date Time Temp Pulse Resp B/P (MAP) Pulse Ox O2 Delivery O2 Flow Rate FiO2 10/21/21 06:00 74 131/82 (98) 97 Room Air 10/21/21 05:00 86 18 127/90 (102) 99 Room Air 10/21/21 04:00 Room Air 10/21/21 04:00 61 123/82 (90) 98 Room Air 10/21/21 03:41 36.1 10/21/21 03:00 78 121/76 (97) 97 Room Air 10/21/21 02:00 80 121/70 (83) 97 Room Air 10/21/21 01:00 83 10/21/21 01:00 83 34 117/84 (103) 88 Room Air 10/21/21 01:00 Nasal Cannula 2.00 10/21/21 00:00 81 26 134/87 (101) 94 Room Air 10/21/21 00:00 Room Air 10/20/21 23:59 36.2 10/20/21 23:00 84 142/87 (105) 92 Room Air 10/20/21 22:00 89 147/94 (115) 94 Room Air 10/20/21 21:00 93 16 137/88 (100) 94 Room Air 10/20/21 20:07 100 139/92 (106) 94 Room Air 10/20/21 20:00 Room Air 10/20/21 19:28 36.6 10/20/21 19:02 114 10/20/21 19:00 107 19 154/105 (112) 93 Room Air 10/20/21 18:00 115 31 157/96 (116) 95 Room Air 10/20/21 17:00 98 28 147/90 (109) 96 Room Air 10/20/21 16:00 112 10 175/109 (131) 96 Room Air 10/20/21 16:00 Room Air 10/20/21 15:46 36.8 10/20/21 15:00 93 16 149/82 (104) 95 Room Air 10/20/21 14:00 99 15 157/95 (115) 96 Room Air 10/20/21 13:00 98 157/88 (111) 94 Room Air 10/20/21 13:00 99 10/20/21 12:00 106 14 166/72 (103) 96 Room Air 10/20/21 12:00 Room Air 10/20/21 11:35 36.6 10/20/21 11:00 99 26 148/93 (111) 94 Room Air 10/20/21 10:00 102 22 154/90 (111) 96 Room Air I & O 10/21/21 07:00 Intake Total 2860 ml Output Total 7000 ml Balance -4140 ml Height & Weight Height: 6'0.00" Weight: 263lbs. oz. 119.911175vf; 30.73 BMI Method:Stated General Appearance: No Apparent Distress, WD/WN, Chronically ill, Obese HEENT: PERRL/EOMI Neck: Full Range of Motion Respiratory: Lungs Clear, Normal Breath Sounds Cardiovascular: Regular Rate, Rhythm Capillary Refill: Less Than 3 Seconds Peripheral Pulses: 2+ Radial Pulses (R), 2+ Radial Pulses (L) Gastrointestinal: soft, tenderness Extremity: Normal Capillary Refill Neurologic/Psychiatric: Alert, Oriented x3, No Motor/Sensory Deficits, Normal Mood/Affect Skin: Normal Color Lymphatic: No Adenopathy Results Lab Laboratory Tests 10/19/21 13:46 10/19/21 18:05 10/19/21 22:10 10/20/21 02:18 10/20/21 05:50 10/20/21 06:40 10/20/21 10:48 10/20/21 16:05 10/20/21 20:07 10/21/21 00:27 10/21/21 04:30 10/21/21 08:46 Assessment/Plan Assessment/Plan 1 KP HURTADO MD Oct 21, 2021 09:44
[2021-10-21] MEDS ORDERED: D5 1/2 NS 1000 ML IV SOLUTION 1,000 ML IV SCH (12:00)
[2021-10-21] MEDS: amLODIPine 5 MG (NORVASC) TAB PO SCH (12:31)
[2021-10-21] MEDS: meTOprolol TARTRATE 25 MG (LOPRESSOR) TABLET PO SCH ×2 (12:31→19:59)
[2021-10-21] MEDS: 1/2 NS IV SOLUTION 1,000 ML IV SCH ×2 (12:53→12:54)
--- NOTE | 2021-10-21 14:21 | Progress Note ---
Subjective Date Seen by a Provider: Oct 21, 2021 Time Seen by a Provider: 13:00 Subjective/Events-last exam doing better. little less abd pain. tolerating low fat diet. labs improving Focused Exam Lactate Level 10/19/21 07:00: Lactic Acid Level 1.42 Objective Exam Vital Signs Date Time Temp Pulse Resp B/P (MAP) Pulse Ox O2 Delivery O2 Flow Rate FiO2 10/21/21 12:15 Room Air 10/21/21 10:00 87 6 153/96 (115) 97 Room Air 10/21/21 09:00 80 14 132/79 (96) 96 Room Air 10/21/21 08:00 71 13 129/78 (95) 100 Room Air 10/21/21 07:45 36.3 10/21/21 07:45 Room Air 10/21/21 07:00 76 17 121/74 (90) 99 Room Air 10/21/21 07:00 62 10/21/21 06:00 74 131/82 (98) 97 Room Air 10/21/21 05:00 86 18 127/90 (102) 99 Room Air 10/21/21 04:00 Room Air 10/21/21 04:00 61 123/82 (90) 98 Room Air 10/21/21 03:41 36.1 10/21/21 03:00 78 121/76 (97) 97 Room Air 10/21/21 02:00 80 121/70 (83) 97 Room Air 10/21/21 01:00 83 10/21/21 01:00 83 34 117/84 (103) 88 Room Air 10/21/21 01:00 Nasal Cannula 2.00 10/21/21 00:00 81 26 134/87 (101) 94 Room Air 10/21/21 00:00 Room Air 10/20/21 23:59 36.2 10/20/21 23:00 84 142/87 (105) 92 Room Air 10/20/21 22:00 89 147/94 (115) 94 Room Air 10/20/21 21:00 93 16 137/88 (100) 94 Room Air 10/20/21 20:07 100 139/92 (106) 94 Room Air 10/20/21 20:00 Room Air 10/20/21 19:28 36.6 10/20/21 19:02 114 10/20/21 19:00 107 19 154/105 (112) 93 Room Air 10/20/21 18:00 115 31 157/96 (116) 95 Room Air 10/20/21 17:00 98 28 147/90 (109) 96 Room Air 10/20/21 16:00 112 10 175/109 (131) 96 Room Air 10/20/21 16:00 Room Air 10/20/21 15:46 36.8 10/20/21 15:00 93 16 149/82 (104) 95 Room Air I & O 10/21/21 06:59 Intake Total 2860 ml Output Total 7000 ml Balance -4140 ml Capillary Refill : Less Than 3 Seconds General Appearance: No Apparent Distress HEENT: PERRL/EOMI Neck: Full Range of Motion Respiratory: Chest Non Tender, Lungs Clear Cardiovascular: Regular Rate, Rhythm Gastrointestinal: normal bowel sounds, soft, tenderness Extremity: Normal Capillary Refill Neurologic/Psychiatric: Alert, Oriented x3 Skin: Normal Color Lymphatic: No Adenopathy Results Lab Laboratory Tests 10/20/21 16:05: Sodium Level 133L, Potassium Level 3.5L, Chloride Level 100, Carbon Dioxide Level 19L, Anion Gap 14, Blood Urea Nitrogen 6L, Creatinine 0.71, Estimat Glomerular Filtration Rate 122, BUN/Creatinine Ratio 8, Glucose Level 173H, Calcium Level 8.9 10/20/21 20:07: Sodium Level 132L, Potassium Level 3.8, Chloride Level 102, Carbon Dioxide Level 16L, Anion Gap 14, Blood Urea Nitrogen 9, Creatinine 0.70, Estimat Glomerular Filtration Rate 122, BUN/Creatinine Ratio 13, Glucose Level 201H, Calcium Level 8.7, White Blood Count 7.6, Red Blood Count 4.41, Hemoglobin 13.0L, Hematocrit 37L, Mean Corpuscular Volume 83, Mean Corpuscular Hemoglobin 30, Mean Corpuscular Hemoglobin Concent 36, Red Cell Distribution Width 14.4, Platelet Count 182, Mean Platelet Volume 11.4, Immature Granulocyte % (Auto) 0, Neutrophils (%) (Auto) 61, Lymphocytes (%) (Auto) 29, Monocytes (%) (Auto) 7, Eo sinophils (%) (Auto) 2, Basophils (%) (Auto) 0, Neutrophils # (Auto) 4.6, Lymphocytes # (Auto) 2.2, Monocytes # (Auto) 0.5, Eosinophils # (Auto) 0.2, Basophils # (Auto) 0.0, Immature Granulocyte # (Auto) 0.0, Phosphorus Level 1.4L 10/21/21 00:27: Sodium Level 133L, Potassium Level 3.6, Chloride Level 101, Carbon Dioxide Level 18L, Anion Gap 14, Blood Urea Nitrogen 8, Creatinine 0.63, Estimat Glomerular Filtration Rate 126, BUN/Creatinine Ratio 13, Glucose Level 213H, Calcium Level 8.5 10/21/21 04:30: Sodium Level 131L, Potassium Level 3.9, Chloride Level 102, Carbon Dioxide Level 19L, Anion Gap 10, Blood Urea Nitrogen 7, Creatinine 0.63, Estimat Glomerular Filtration Rate 126, BUN/Creatinine Ratio 11, Glucose Level 204H, Calcium Level 8.6, White Blood Count 7.1, Red Blood Count 4.28L, Hemoglobin 12.5L, Hematocrit 36L, Mean Corpuscular Volume 84, Mean Corpuscular Hemoglobin 29, Mean Corpuscular Hemoglobin Concent 35, Red Cell Distribution Width 14.6H, Platelet Count 157, Mean Platelet Volume 11.4, Immature Granulocyte % (Auto) 0, Neutrophils (%) (Auto) 55, Lymphocytes (%) (Auto) 33, Monocytes (%) (Auto) 9, Eosinophils (%) (Auto) 2, Basophils (%) (Auto) 0, Neutrophils # (Auto) 3.9, Lymphocytes # (Auto) 2.3, Monocytes # (Auto) 0.6, Eosinophils # (Auto) 0.2, Basophils # (Auto) 0.0, Immature Granulocyte # (Auto) 0.0, Phosphorus Level 2.5, Corrected Calcium 9.3, Magnesium Level 2.1, Total Bilirubin 0.2, Aspartate Amino Transf (AST/SGOT) 15, Alanine Aminotransferase (ALT/SGPT) 19, Alkaline Phosphatase 38L, Total Protein 7.0, Albumin 3.1L, Triglycerides Level 1485H, Lipase 36 10/21/21 05:43: Blood Gas Puncture Site NOT INDICATED, Blood Gas Patient Temperature NOT INDICATED, Arterial Blood pH 7.39, Arterial Blood Partial Pressure CO2 40, Arterial Blood Partial Pressure O2 105H, Arterial Blood HCO3 24, Arterial Blood Total CO2 24.9, Arterial Blood Oxygen Saturation 99, Arterial Blood Base Excess -0.6, Jamil Test NA, Blood Gas Ventilator Setting NO, Blood Gas Inspired Oxygen NOT INDICATED 10/21/21 08:46: Sodium Level 134L, Potassium Level 3.8, Chloride Level 101, Carbon Dioxide Level 21, Anion Gap 12, Blood Urea Nitrogen 6L, Creatinine 0.64, Estimat Glomerular Filtration Rate 126, BUN/Creatinine Ratio 9, Glucose Level 194H, Calcium Level 8.9 Microbiology 10/19/21 MRSA Screen - Final, Complete MRSA not isolated Assessment/Plan Assessment/Plan Assess & Plan/Chief Complaint hypertriglyceridemia induced acute non-complicated pancreatitis. low fat diet. u/s GB and biliary tree in am. no stones identified. continue ambulation. may go to floor per surg perspective. will also proceed with a HIDA with EF% as OP. KARINA ANTUNEZ MD Oct 21, 2021 14:21
[2021-10-21] MEDS: ENOXAPARIN 40 MG/0.4 ML (LOVENOX) SYR SC SCH (15:28)
--- NOTE | 2021-10-21 15:41 | Progress Note ---
Subjective Subjective/Events-last exam Patient is doing well this AM. He is wanting to eat. Waiting for US results. Pain is improved Review of Systems General: Malaise Pulmonary: No Dyspnea, No Cough Cardiovascular: No: Chest Pain, Palpitations, Edema Gastrointestinal: Abdominal Pain; No: Nausea, Vomiting, Diarrhea, Constipation Neurological: No: Weakness, Confusion Focused Exam Lactate Level 10/19/21 07:00: Lactic Acid Level 1.42 Objective Exam Last Set of Vital Signs Vital Signs Date Time Temp Pulse Resp B/P (MAP) Pulse Ox O2 Delivery O2 Flow Rate FiO2 10/21/21 12:15 Room Air 10/21/21 10:00 87 6 153/96 (115) 97 10/21/21 07:45 36.3 10/21/21 01:00 2.00 Capillary Refill : Less Than 3 Seconds I&O Intake and Output 10/21/21 00:00 Intake Total 1910 ml Output Total 7400 ml Balance -5490 ml Intake Oral 1860 ml IV Total 50 ml Output Urine Total 7400 ml General: Alert, Oriented X3, No Acute Distress Lungs: Clear to Auscultation, Normal Air Movement Heart: Regular Rate, No Murmurs Abdomen: Normal Bowel Sounds, Soft, No Tenderness, No Masses Extremities: No Edema, No Tenderness/Swelling Neuro: Normal Speech, Cranial Nerves 3-12 NL Results/Procedures Lab Laboratory Tests 10/20/21 16:05: Sodium Level 133L, Potassium Level 3.5L, Chloride Level 100, Carbon Dioxide Level 19L, Anion Gap 14, Blood Urea Nitrogen 6L, Creatinine 0.71, Estimat Glomerular Filtration Rate 122, BUN/Creatinine Ratio 8, Glucose Level 173H, Calcium Level 8.9 10/20/21 20:07: Sodium Level 132L, Potassium Level 3.8, Chloride Level 102, Carbon Dioxide Level 16L, Anion Gap 14, Blood Urea Nitrogen 9, Creatinine 0.70, Estimat Glomerular Filtration Rate 122, BUN/Creatinine Ratio 13, Glucose Level 201H, Calcium Level 8.7, White Blood Count 7.6, Red Blood Count 4.41, Hemoglobin 13.0L, Hematocrit 37L, Mean Corpuscular Volume 83, Mean Corpuscular Hemoglobin 30, Mean Corpuscular Hemoglobin Concent 36, Red Cell Distribution Width 14.4, Platelet Count 182, Mean Platelet Volume 11.4, Immature Granulocyte % (Auto) 0, Neutrophils (%) (Auto) 61, Lymphocytes (%) (Auto) 29, Monocytes (%) (Auto) 7, Eosinophils (%) (Auto) 2, Basophils (%) (Auto) 0, Neutrophils # (Auto) 4.6, Lymphocytes # (Auto) 2.2, Monocytes # (Auto) 0.5, Eosinophils # (Auto) 0.2, Basophils # (Auto) 0.0, Immature Granulocyte # (Auto) 0.0, Phosphorus Level 1.4L 10/21/21 00:27: Sodium Level 133L, Potassium Level 3.6, Chloride Level 101, Carbon Dioxide Level 18L, Anion Gap 14, Blood Urea Nitrogen 8, Creatinine 0.63, Estimat Glomerular Filtration Rate 126, BUN/Creatinine Ratio 13, Glucose Level 213H, Calcium Level 8.5 10/21/21 04:30: Sodium Level 131L, Potassium Level 3.9, Chloride Level 102, Carbon Dioxide Level 19L, Anion Gap 10, Blood Urea Nitrogen 7, Creatinine 0.63, Estimat Glomerular Filtration Rate 126, BUN/Creatinine Ratio 11, Glucose Level 204H, Calcium Level 8.6, White Blood Count 7.1, Red Blood Count 4.28L, Hemoglobin 12.5L, Hematocrit 36L, Mean Corpuscular Volume 84, Mean Corpuscular Hemoglobin 29, Mean Corpuscular Hemoglobin Concent 35, Red Cell Distribution Width 14.6H, Platelet Count 157, Mean Platelet Volume 11.4, Immature Granulocyte % (Auto) 0, Neutrophils (%) (Auto) 55, Lymphocytes (%) (Auto) 33, Monocytes (%) (Auto) 9, Eosinophils (%) (Auto) 2, Basophils (%) (Auto) 0, Neutrophils # (Auto) 3.9, Lymphocytes # (Auto) 2.3, Monocytes # (Auto) 0.6, Eosinophils # (Auto) 0.2, Basophils # (Auto) 0.0, Immature Granulocyte # (Auto) 0.0, Phosphorus Level 2.5, Corrected Calcium 9.3, Magnesium Level 2.1, Total Bilirubin 0.2, Aspartate Amino Transf (AST/SGOT) 15, Alanine Aminotransferase (ALT/SGPT) 19, Alkaline Phosphatase 38L, Total Protein 7.0, Albumin 3.1L, Triglycerides Level 1485H, Lipase 36 10/21/21 05:43: Blood Gas Puncture Site NOT INDICATED, Blood Gas Patient Temperature NOT INDICATED, Arterial Blood pH 7.39, Arterial Blood Partial Pressure CO2 40, Arterial Blood Partial Pressure O2 105H, Arterial Blood HCO3 24, Arterial Blood Total CO2 24.9, Arterial Blood Oxygen Saturation 99, Arterial Blood Base Excess -0.6, Jamil Test NA, Blood Gas Ventilator Setting NO, Blood Gas Inspired Oxygen NOT INDICATED 10/21/21 08:46: Sodium Level 134L, Potassium Level 3.8, Chloride Level 101, Carbon Dioxide Level 21, Anion Gap 12, Blood Urea Nitrogen 6L, Creatinine 0.64, Estimat Glomerular Filtration Rate 126, BUN/Creatinine Ratio 9, Glucose Level 194H, Calcium Level 8.9 Microbiology 10/19/21 MRSA Screen - Final, Complete MRSA not isolated Assessment/Plan Assessment/Plan (1) Metabolic acidosis Status: Resolved (2) Pancreatitis, acute Status: Acute Assessment & Plan: 10/21: Acute pancreatitis likely contributed from medication induced and familial hyper TGs, Discussed with patient that he will have to stop Ozempic and start insulin to control his DM Qualifiers: Qualified Codes: K85.80 - Other acute pancreatitis without necrosis or infection (3) Familial hypertriglyceridemia Status: Chronic Assessment & Plan: 10/21: Dr Esquivel managing as outpatient, currently requiring insulin gtts, eICU recommends TG level to around 1000 prior to d.c of insulin gtts (4) Uncontrolled diabetes mellitus Status: Chronic Assessment & Plan: 10/21: Significant SE from medications, will d/c on insulin, discussed goals of A1c 6-7, currently 10 Qualifiers: Qualified Codes: E11.65 - Type 2 diabetes mellitus with hyperglycemia (5) HTN (hypertension) Status: Chronic Assessment & Plan: 10/21: Continue home meds Qualifiers: Qualified Codes: I10 - Essential (primary) hypertension ELAINE HARPER MD Oct 21, 2021 15:41
[2021-10-22] VITALS (11 sets, daily range): BP systolic 135–160; BP diastolic 79–104
[2021-10-22] MEDS: POTASSIUM CL 10MEQ/50ML IVPB 50 ML IV SCH ×4 (04:19→08:55)
[2021-10-22 05:05] LABS: BASOPHILS % (AUTO) 1 % (0-10); EOSINOPHILS # (AUTO) 0.2 10^3/uL (0.0-0.3); EOSINOPHILS % (AUTO) 2 % (0-10); HEMATOCRIT 37 % (40-54); HEMOGLOBIN 12.5 g/dL (13.3-17.7); LYMPHOCYTES # (AUTO) 2.2 10^3/uL (1.0-4.0); LYMPHOCYTES % (AUTO) 34 % (12-44); MEAN CORPUSCULAR HEMOGLOBIN 29 pg (25-34); MEAN CORPUSCULAR HGB CONC 34 g/dL (32-36); MEAN CORPUSCULAR VOLUME 85 fL (80-99); MEAN PLATELET VOLUME 11.5 fL (9.0-12.2); MONOCYTES # (AUTO) 0.4 10^3/uL (0.0-1.0); MONOCYTES % (AUTO) 6 % (0-12); NEUTROPHILS # (AUTO) 3.8 10^3/uL (1.8-7.8); NEUTROPHILS % (AUTO) 57 % (42-75); PLATELET COUNT 191 10^3/uL (130-400); WHITE BLOOD COUNT 6.6 10^3/uL (4.3-11.0)
[2021-10-22 05:24] LABS: ALBUMIN 3.3 GM/DL (3.2-4.5); POTASSIUM 4.1 MMOL/L (3.6-5.0)
[2021-10-22 05:28] LABS: BILIRUBIN,TOTAL 0.2 MG/DL (0.1-1.0)
[2021-10-22 05:30] LABS: CREATININE SERUM 0.67 MG/DL (0.60-1.30); PHOSPHORUS 2.5 MG/DL (2.3-4.7)
[2021-10-22] MEDS: MAGNESIUM 1 GM/100 ML IVPB 100 ML IV SCH (06:56)
[2021-10-22] MEDS: KCL 20 MEQ TAB (K-DUR) PO SCH (06:57)
[2021-10-22] MEDS: DOCUSATE SODIUM 100 MG (COLACE) CAP PO SCH (07:46)
[2021-10-22] MEDS: SENNOSIDES 8.6 MG (SENOKOT) TAB PO SCH (07:47)
[2021-10-22] MEDS: amLODIPine 5 MG (NORVASC) TAB PO SCH (08:04)
[2021-10-22] MEDS: PANTOPRAZOLE 40 MG (PROTONIX) VIAL IV SCH (08:04)
[2021-10-22] MEDS: meTOprolol TARTRATE 25 MG (LOPRESSOR) TABLET PO SCH (08:04)
--- NOTE | 2021-10-22 10:55 | Discharge Summary ---
Diagnosis/Chief Complaint Date of Admission Oct 18, 2021 at 13:42 Date of Discharge 10/22/21 Discharge Diagnosis Problems/Diagnosis: (1) Metabolic acidosis Status: Resolved Resolution Date/Time: 10/21/21 @ 15:37 (2) Pancreatitis, acute Assessment & Plan: 10/21: Acute pancreatitis likely contributed from medication induced and familial hyper TGs, Discussed with patient that he will have to stop Ozempic and start insulin to control his DM Qualifiers: Qualified Codes: K85.80 - Other acute pancreatitis without necrosis or infection Status: Acute (3) Familial hypertriglyceridemia Assessment & Plan: 10/21: Dr Esquivel managing as outpatient, currently requiring insulin gtts, eICU recommends TG level to around 1000 prior to d.c of insulin gtts Status: Chronic (4) Uncontrolled diabetes mellitus Assessment & Plan: 10/21: Significant SE from medications, will d/c on insulin, discussed goals of A1c 6-7, currently 10 Qualifiers: Qualified Codes: E11.65 - Type 2 diabetes mellitus with hyperglycemia Status: Chronic (5) HTN (hypertension) Assessment & Plan: 10/21: Continue home meds Qualifiers: Qualified Codes: I10 - Essential (primary) hypertension Status: Chronic Discharge Summary-Simple/Stand Consultations Discharge Physical Examination Allergies: Coded Allergies: No Known Drug Allergies (Unverified , 08/23/17) Vitals & I&Os Vital Sign - Last 12Hours Date Time Temp Pulse Resp B/P (MAP) Pulse Ox O2 Delivery O2 Flow Rate FiO2 10/22/21 09:00 61 19 142/88 (106) 98 Room Air 10/22/21 07:36 36.1 10/21/21 01:00 2.00 Intake and Output 10/22/21 00:00 Intake Total 1055 ml Output Total 1750 ml Balance -695 ml Hospital Course See final discharge diagnosis. Discharge Instructions to patient/family Please see electronic discharge instructions given to patient. Discharge Medications Reviewed and agree with Discharge Medication list on patient's Discharge Instruction sheet ELAINE HARPER MD Oct 22, 2021 10:55
--- NOTE | 2021-10-22 11:00 | Tele-ICU Progress Note ---
Subjective Date Seen by a Provider: Oct 22, 2021 Subjective/Events-last exam (Tele-ICU Physician , Progress Note ) Available chart/ vitals / labs / Images reviewed Video assessment done using teleICU camera, rest of exam as per RN Discussed with RN , EXAM PER RN Events overnight : Afebrile FiO2 - ra I/O = neg Drips: insulin d51/2 125 Pressors: , hemodynamically stable Consultants: sx Hospital course: A/P Acute pancreatitis on the top of chronic pancreatitis due to hypertriglyceridemia. Familial hypertriglyceridemia with triglycerides level over 5000 High anion gap metabolic acidosis Hyponatremia secondary to dehydration Possible ketoacidosis as evidenced by elevated beta hydroxybutyrate PLAN IV insulin drip and monitor his triglycerides levels daily - DISCUSSED WITH Dr Rg - TGL baseline [id number] , there is no end-organ disfunction , nl WBC , nl lipase , off bicarb drip, do not needed PRN meds for pain = can stop insulin gtt given @baseline TGL levels and no more drop/improvement on insulin gtt , TGL to vbe followed and TX as out pt u/s GB and biliary tree as per SX DVT prophylaxis and ulcer prophylaxis.. Lines : (Central Line Necessity Reviewed) Linn: void OG: Nutrition: Analgesia: Anxiety/ delirium VTE Prophylaxis: mesha 40 Stress Ulcer Prophylaxis: ppi Plans in collaboration with bedside consultants and IM MDs. Discussed with RN to reach out if any questions or concerns A total of 31 minutes of critical care time was devoted to this patient today, required to treat and/or prevent further deterioration of critical care condition ( as above) . Sepsis Event Evaluation Height, Weight, BMI Height: 6'0.00" Weight: 263lbs. oz. [id number]; 30.73 BMI Method:Stated Exam Exam Patient acknowledged, consented, and participated in this virtual visit which was conducted using real time audio/video Vital Signs Date Time Temp Pulse Resp B/P (MAP) Pulse Ox O2 Delivery O2 Flow Rate FiO2 10/22/21 09:00 61 19 142/88 (106) 98 Room Air 10/22/21 08:33 Room Air 10/22/21 08:00 78 17 142/90 (107) 98 Room Air 10/22/21 07:36 36.1 10/22/21 07:00 73 14 136/95 (109) 97 Room Air 10/22/21 06:37 71 10/22/21 06:00 80 23 151/90 (108) 96 Room Air 10/22/21 05:09 92 20 160/102 (119) 98 Room Air 10/22/21 04:00 74 16 135/79 (100) 96 Room Air 10/22/21 03:32 Room Air 10/22/21 03:00 77 13 96 Room Air 10/22/21 02:00 94 28 155/89 (109) 95 Room Air 10/22/21 01:00 68 16 137/89 (101) 96 Room Air 10/22/21 01:00 68 10/22/21 00:00 36.2 10/22/21 00:00 Room Air 10/22/21 00:00 74 22 145/104 (112) 96 Room Air 10/21/21 23:00 76 14 126/66 (76) 96 Room Air 10/21/21 22:00 76 133/75 (91) 97 Room Air 10/21/21 21:00 82 34 159/94 (116) 97 Room Air 10/21/21 20:28 36.4 10/21/21 20:00 84 21 146/94 (115) 97 Room Air 10/21/21 20:00 Room Air 10/21/21 19:00 83 10/21/21 19:00 91 138/78 (100) 97 Room Air 10/21/21 18:00 95 140/86 (104) 96 Room Air 10/21/21 17:00 75 28 143/95 (111) 96 Room Air 10/21/21 16:00 Room Air 10/21/21 16:00 86 26 142/86 (104) 95 Room Air 10/21/21 15:47 36.0 10/21/21 15:00 80 29 127/82 (97) 94 Room Air 10/21/21 14:00 93 22 125/76 (92) 96 Room Air 10/21/21 13:00 87 9 148/96 (113) 97 Room Air 10/21/21 13:00 87 10/21/21 12:15 Room Air 10/21/21 12:00 76 17 144/89 (107) 98 Room Air I & O 10/22/21 06:59 Intake Total 3205 ml Output Total 3650 ml Balance -445 ml Height & Weight Height: 6'0.00" Weight: 263lbs. oz. 119.254291yo; 30.73 BMI Method:Stated General Appearance: No Apparent Distress HEENT: PERRL/EOMI Neck: Full Range of Motion Respiratory: Chest Non Tender, Lungs Clear Cardiovascular: Regular Rate, Rhythm Capillary Refill: Less Than 3 Seconds Peripheral Pulses: 2+ Radial Pulses (R), 2+ Radial Pulses (L) Gastrointestinal: normal bowel sounds, soft, tenderness Extremity: Normal Capillary Refill Neurologic/Psychiatric: Alert, Oriented x3 Skin: Normal Color Lymphatic: No Adenopathy Results Lab Laboratory Tests 10/20/21 16:05 10/20/21 20:07 10/21/21 00:27 10/21/21 04:30 10/21/21 08:46 10/22/21 04:44 Assessment/Plan Assessment/Plan ` KP HURTADO MD Oct 22, 2021 11:00
[2021-10-22] MEDS ORDERED: METO-333 PO (11:02)
[2021-10-22] MEDS ORDERED: INSU100I29 SQ (11:02)
[2021-10-22] MEDS ORDERED: AMLO-250 PO (11:02)
--- NOTE | 2021-10-22 11:04 | Discharge Summary ---
Discharge [facility] Reconcile Patient Problems Problems Reviewed?: Yes Discharge Medications New, Converted or Re-Newed RX: Transmitted to Pharmacy New Medications: Insulin Detemir (Levemir Flextouch) 100 Unit/Ml (3 Ml) Insuln.pen 10 UNIT SQ BID, #1 EA Amlodipine Besylate (Amlodipine Besylate) 5 Mg Tablet 5 MG PO DAILY, #30 TAB Metoprolol Tartrate (Metoprolol Tartrate) 25 Mg Tablet 25 MG PO BID, #60 TAB Continued Medications: Fish Oil/Dha/Epa (Fish Oil 1,200 mg Fish Oil) 1,200 Mg-144 Mg-216 Mg Capsule 1 EACH PO DAILY, CAP Lisinopril/Hydrochlorothiazide (Lisinopril-Hctz 20-25 mg Tab) 20 Mg-25 Mg Tablet 1 EA PO DAILY, TAB Multivitamin (Multivitamin) 1 Each Tablet 1 EACH PO DAILY, TAB Discontinued Medications: Empagliflozin/Metformin HCl (Synjardy Xr 12.5-1,000 mg Tab) 12.5 Mg-1,000 Mg Tab.bp.24h 2 EACH PO DAILY Glimepiride (Glimepiride) 1 Mg Tablet 2 MG PO DAILY, TAB TAKES 2 (1MG) TABS Semaglutide (Rybelsus) 3 Mg Tablet 3 MG PO DAILY, TAB Patient Instructions Goal/Follow Up Appt: F.u with PCP 1-2 weeks Would recommend f.u with Dr Esquivel Cardiology 2-4 weeks Repeat Lipid panel next week Activity & Diet Discharge Diet: Low Fat/Low Cholesterol, Cardiac Diet Activity as Tolerated: Yes ELAINE HARPER MD Oct 22, 2021 11:04
== END 2021-10-22 13:30 | disposition home or self-care (01) | DRG 439 ==
LOC: EDUNIT# 10:24 → ER 10:25 → 4TH 13:42 → ICU 10-19 09:40
PROVIDERS: ADMIT Internal Medicine; ATTEND Family Medicine
DX: K85.90 Acute pancreatitis without necrosis or infection, unspecified (principal); E87.1 Hypo-osmolality and hyponatremia; E87.2 Acidosis; E86.0 Dehydration; E78.49 Other hyperlipidemia; E11.65 Type 2 diabetes mellitus with hyperglycemia; I10 Essential (primary) hypertension; E66.9 Obesity, unspecified; Z79.84 Long term (current) use of oral hypoglycemic drugs; Z68.31 Body mass index [BMI] 31.0-31.9, adult; Z83.3 Family history of diabetes mellitus
CPT/HCPCS: 36415; 36600; 71045; 74177; 76705; 80048; 80053; 81000; 82010; 82805; 83036; 83605; 83690; 83735; 84100; 84145; 84478; 85007; 85025; 85027; 85610; 86141; 87081

== ENCOUNTER → 2022-01-31 | Outpatient (CLI) | payer BC ==
[~2022-01-31] VITALS: Ht 182.9 cm; Wt 109.1 kg
[~2022-01-31] MED LIST changes: +AMLO-250 PO; +EMPA1TAB21 PO; +FISH1CAP15 PO; +GLIM1TAB4 PO; +INCLISIRAN (LEQVIO) 284 MG/1.5 ML SYRINGE SQ ONE; +INSU100I29 SQ; +METO-333 PO; +MULT-1136 PO; +SEMA3TAB4 PO
[2022-01-31 09:52] VITALS: BP 131/88
== END ==
LOC: SDC 08:56
PROVIDERS: ATTEND Internal Medicine Cardiovascular Disease
DX: E78.2 Mixed hyperlipidemia (principal)
CPT/HCPCS: 96372